=== PATIENT | female | born 1990 | race Caucasian/White ===

== ENCOUNTER 2020-10-15 11:07 | Inpatient (IN) ==
[2020-10-15] MEDS ORDERED: KETOROLAC TROMETHAMINE 15 MG/ML VIAL IV STA (11:54)
[2020-10-15] MEDS ORDERED: SODIUM CHLORIDE 0.9% 1000ML 1,000 ML IV ONE ×2 (11:54→12:50)
--- NOTE | 2020-10-15 12:11 | Emergency Department Note ---
History of Present Illness General Chief complaint: Fever Stated complaint: FEVER LEFT SIDE PAIN Time Seen by Provider: 10/15/20 11:36 Source: patient Mode of arrival: ambulatory Limitations: no limitations History of Present Illness Maximum Pain Intensity: 10 This patient is a 29-year-old female who presents to the emergency department for evaluation of fever and left-sided chest pain. She states that she has had a fever which started last night and continued this morning. Patient states that her temperature has been as high as 103.9 F. She reports that since yesterday, she has been experiencing a pain in her neck, down under her left breast. She states that she has a constant, achy pain which becomes sharper at times. She vomited last night. She reports she has a headache on and off. She has been vaccinated for COVID-19 and denies any recent COVID exposures. She she denies recent tick bites, but does state that she lives in the [facility] and her kids often get tick bites. She has taken ibuprofen for her fever. She has taken medication for acid reflux which did not help her chest pain. She denies any urinary symptoms, abdominal pain, neck pain/stiffness or shortness of breath. She has a chronic cough but denies anything different from her usual. Home Medications Medication Instructions Recorded Confirmed Type albuterol sulfate 90 mcg/actuation 2 puff INHALATION Q4H PRN 10/15/20 10/15/20 History aerosol inhaler (ProAir HFA) Allergies Allergy/AdvReac Type Severity Reaction Status Date / Time prednisone AdvReac Intermediate CONFUSED,CO Verified 10/15/20 13:24 MBATIVE Past Med/Surg History Medical History (Updated 10/15/20 @ 16:20 by Deja Quiles PA-C) Asthma Celiac disease MATT (iron deficiency anemia) IgA deficiency Surgical History (Updated 10/15/20 @ 16:19 by OZ Mitchell) H/O hernia repair History of cholecystectomy Hx of appendectomy Hx of tympanostomy tubes Family History Other Cancer Diabetes Gallbladder disease Heart disease Hypertension Lung disease Seizure Social History Smoking Status: Current every day smoker Tobacco Type: Cigarettes Cigarettes Per Day: 1/2-1 PPD; Second Hand Exposure: No; Do You Dip or Chew Tobacco: No; Tobacco Cessation Education Requested by Patient: No Hx Alcohol Use: No Hx Substance Use: No Preferred Language: Croatian Communication Ability: Effective Fleet Administrative Assistant Required: No Beliefs That Will Affect Care: None marital status: Current Living Situation: Spouse current occupational status: employed Other Information That Helps Us Care for You: No Feels Safe at Home: Yes Safety Concerns: Feels Safe At This Time Assistive Devices: None Review of Systems A total of 10 systems reviewed and were otherwise negative Physical Exam Vital Signs Vital Signs - 24 hr 10/15/20 11:13 10/15/20 13:53 Temperature 36.5 C Temperature Source Temporal Artery Scan Pulse Rate 128 H Pulse Rate [Apical] 118 H Respiratory Rate 22 16 Respiratory Effort / Characteristics Non-Labored Spontaneous Respiratory Depth Normal Blood Pressure 124/79 Blood Pressure [Right Arm] 153/110 H Blood Pressure Mean 94 Blood Pressure Mean [Right Arm] 124 Pulse Oximetry 96 100 Oxygen Delivery Method Room Air Room Air Sepsis Recent Fever Within 48 Hours Yes Sepsis New/Unexplained Change in Mental Status N/A Sepsis Action Taken by Nursing No Action Required VITALS: Vitals are noted on the nurse's note and reviewed by myself. GENERAL: This is a 29-year-old female, mildly ill-appearing, well-developed well-nourished. SKIN: The skin was without rashes. EARS: External auditory canals clear, tympanic membranes pearly pizarro without erythema or effusion bilaterally. EYES: Pupils equal round and reactive to light and accommodation. NOSE: Patent, turbinates without inflammation or discharge. MOUTH: Mucous membranes moist. Tonsils are not enlarged. Pharynx without erythema or exudate. NECK: Supple without nuchal rigidity. No lymphadenopathy. HEART: Regular rate and rhythm without murmurs gallops or rubs. LUNGS: Clear to auscultation bilaterally without wheezes, rales or rhonchi. ABDOMEN: Positive bowel sounds x 4. Soft, nontender to palpation. No guarding or rebound tenderness. MUSCULOSKELETAL: No reproducible tenderness of the chest wall. NEURO: Patient was alert and oriented to person place and time. Course Administered Medications Discontinued Medications Sodium Chloride (Nss 1000ml) 1,000 mls @ 999 mls/hr IV .Q1H1M ONE Stop: 10/15/20 12:54 Last Infusion: 10/15/20 14:27 Dose: 0 mls/hr Documented by: [id number] Admin: 10/15/20 12:12 Dose: 999 mls/hr Documented by: [id number] Ceftriaxone Sodium (Rocephin) 2,000 mg in 70 mls @ 140 mls/hr IV NOW STA Stop: 10/15/20 13:11 Last Infusion: 10/15/20 14:26 Dose: 0 mls/hr Documented by: [id number] Admin: 10/15/20 13:52 Dose: 140 mls/hr Documented by: [id number] Azithromycin 500 mg/ Dextrose 255 mls @ 125 mls/hr IV ONE ONE Stop: 10/15/20 14:44 Last Admin: 10/15/20 14:41 Dose: 125 mls/hr Documented by: [id number] Sodium Chloride (Nss 1000ml) 1,000 mls @ 999 mls/hr IV .Q1H1M ONE Stop: 10/15/20 13:50 Last Admin: 10/15/20 14:42 Dose: 999 mls/hr Documented by: [id number] Ioversol (Optiray 320 125ml) 120 ml IV ONCE ONE Stop: 10/15/20 13:49 Last Admin: 10/15/20 13:49 Dose: 120 ml Documented by: [id number] Ketorolac Tromethamine (Ketorolac Tromethamine 15 Mg/Ml Vial) 15 mg IV NOW STA Stop: 10/15/20 11:55 Last Admin: 10/15/20 12:12 Dose: 15 mg Documented by: [id number] Morphine Sulfate (Morphine Sulfate 10 Mg/Ml Carp/Vial) 6 mg IV NOW STA Stop: 10/15/20 12:50 Last Admin: 10/15/20 13:22 Dose: Not Given Documented by: [id number] Morphine Sulfate (Morphine Sulfate 4 Mg/Ml 1 Ml Carp\Vial) Confirm Administered Dose 4 mg .ROUTE .STK-MED ONE Stop: 10/15/20 13:16 Last Admin: 10/15/20 13:22 Dose: 4 mg Documented by: [id number] Morphine Sulfate (Morphine Sulfate 2 Mg/Ml Carp) Confirm Administered Dose 2 mg .ROUTE .STK-MED ONE Stop: 10/15/20 13:17 Last Admin: 10/15/20 13:21 Dose: 2 mg Documented by: [id number] Ondansetron HCl (Ondansetron Inj 2 Mg/Ml 2 Ml Vial) 4 mg IV ONE ONE Stop: 10/15/20 14:45 Last Admin: 10/15/20 15:09 Dose: 4 mg Documented by: [id number] Critical Care Time Critical Care Time: Yes Total Critical Care Time: 40 I have personally spent greater than 40 minutes of critical care time in the direct management of this patient. This includes bedside care, interpretation of diagnostic studies, and testing, discussion with consultants, patient, and family members, and other required patient management activities. This 40 minutes is in excess of all separately billable procedures. Medical Decision Making Differential Diagnosis Viral syndrome, otitis, pharyngitis, pneumonia, influenza, meningitis, urinary tract infection, sepsis, bacteremia, as well as other pathologies. Home Medications Current Medication List: was personally reviewed by me Laboratory Data Attestation: I reviewed the patient's lab results. Result diagrams: 10/15/20 12:00 10/15/20 12:00 Lab Results 10/15/20 10/15/20 10/15/20 Range/Units 12:00 12:00 12:00 WBC 20.89 H (4.8-10.8) K/uL RBC 4.05 L (4.2-5.4) M/uL Hgb 6.3 L* (12.0-16.0) g/dL Hct 23.5 L (37-47) % MCV 58.0 L (80-100) fL MCH 15.6 L (25-34) pg MCHC 26.8 L (32-36) g/dL RDW Std Deviation 41.8 (36.4-46.3) fL RDW Coeff of Jewell 19.7 H (11.5-14.5) % Plt Count 252 (130-400) K/uL Immature Gran % (Auto) 0.9 % Neut % (Auto) 88.4 % Lymph % (Auto) 4.9 % [place]onder[place] % (Auto) 5.6 % Eos % (Auto) 0.1 % Baso % (Auto) 0.1 % Neut # (Auto) 18.46 H (1.4-6.5) K/uL Lymph # (Auto) 1.02 L (1.2-3.4) K/uL [place] # (Auto) 1.17 H (0.11-0.59) K/uL Eos # (Auto) 0.02 (0-0.5) K/uL Baso # (Auto) 0.03 (0-0.2) K/uL Immature Gran # (Auto) 0.19 H (0.00-0.02) K/uL Polychromasia 1+ Hypochromasia Present Anisocytosis Present Microcytosis Present D-Dimer 540 H* (0-500) ug/L FEU Sodium 138 (136-145) mmol/L Potassium 3.3 L (3.5-5.1) mmol/L Chloride 107 (98-107) mmol/L Carbon Dioxide 23 (21-32) mmol/L Anion Gap 8.0 (3-11) BUN 11 (7-18) mg/dl Creatinine 0.88 (0.6-1.2) mg/dl Est Cr Clr Drug Dosing 115.2 ml/min Est GFR ( Amer) 102.9 ml/min Est GFR (Non-Af Amer) 88.8 ml/min BUN/Creatinine Ratio 12.5 (10-20) Glucose 107 H (70-99) mg/dl Lactate (0.4-2.0) mmol/L Calcium 8.1 L (8.5-10.1) mg/dl Total Bilirubin 1.3 H (0.2-1) mg/dl AST 7 L (15-37) U/L ALT 17 (12-78) U/L Alkaline Phosphatase 84 (45-117) U/L Troponin I < 0.015 (0-0.045) ng/ml Total Protein 6.4 (6.4-8.2) gm/dl Albumin 3.6 (3.4-5.0) gm/dl Globulin 2.8 (2.5-4.0) gm/dl Albumin/Globulin Ratio 1.3 (0.9-2) Urine Color Urine Appearance (Clear) Urine pH (4.5-7.5) Ur Specific Alpine (1.000-1.030) Urine Protein (Negative) Urine Glucose (UA) (Negative) Urine Ketones (Negative) Urine Blood (Negative) Urine Nitrite (Negative) Urine Bilirubin (Negative) Urine Urobilinogen (Negative) Ur Leukocyte Esterase (Negative) Urine WBC (Auto) (0-5) /hpf Urine RBC (Auto) (0-4) /hpf U Hyaline Cast (Auto) (0-5) /lpf U Epithel Cells (Auto) (0-5) /lpf Urine Bacteria (Auto) (Negative) Anaplasma Smear See Comment Lyme Disease IgG Ab (Negative) Lyme Disease IgM Ab (Negative) COVID-19 Eval Order SARS-CoV-2 (PCR) (Negative) Blood Type Antibody Screen Crossmatch 10/15/20 10/15/20 10/15/20 Range/Units 12:00 12:00 12:05 WBC (4.8-10.8) K/uL RBC (4.2-5.4) M/uL Hgb (12.0-16.0) g/dL Hct (37-47) % MCV (80-100) fL MCH (25-34) pg MCHC (32-36) g/dL RDW Std Deviation (36.4-46.3) fL RDW Coeff of Jewell (11.5-14.5) % Plt Count (130-400) K/uL Immature Gran % (Auto) % Neut % (Auto) % Lymph % (Auto) % Pondera % (Auto) % Eos % (Auto) % Baso % (Auto) % Neut # (Auto) (1.4-6.5) K/uL Lymph # (Auto) (1.2-3.4) K/uL [place] # (Auto) (0.11-0.59) K/uL Eos # (Auto) (0-0.5) K/uL Baso # (Auto) (0-0.2) K/uL Immature Gran # (Auto) (0.00-0.02) K/uL Polychromasia Hypochromasia Anisocytosis Microcytosis D-Dimer (0-500) ug/L FEU Sodium (136-145) mmol/L Potassium (3.5-5.1) mmol/L Chloride (98-107) mmol/L Carbon Dioxide (21-32) mmol/L Anion Gap (3-11) BUN (7-18) mg/dl Creatinine (0.6-1.2) mg/dl Est Cr Clr Drug Dosing ml/min Est GFR ( Amer) ml/min Est GFR (Non-Af Amer) ml/min BUN/Creatinine Ratio (10-20) Glucose (70-99) mg/dl Lactate 2.5 H* (0.4-2.0) mmol/L Calcium (8.5-10.1) mg/dl Total Bilirubin (0.2-1) mg/dl AST (15-37) U/L ALT (12-78) U/L Alkaline Phosphatase (45-117) U/L Troponin I (0-0.045) ng/ml Total Protein (6.4-8.2) gm/dl Albumin (3.4-5.0) gm/dl Globulin (2.5-4.0) gm/dl Albumin/Globulin Ratio (0.9-2) Urine Color Urine Appearance (Clear) Urine pH (4.5-7.5) Ur Specific Alpine (1.000-1.030) Urine Protein (Negative) Urine Glucose (UA) (Negative) Urine Ketones (Negative) Urine Blood (Negative) Urine Nitrite (Negative) Urine Bilirubin (Negative) Urine Urobilinogen (Negative) Ur Leukocyte Esterase (Negative) Urine WBC (Auto) (0-5) /hpf Urine RBC (Auto) (0-4) /hpf U Hyaline Cast (Auto) (0-5) /lpf U Epithel Cells (Auto) (0-5) /lpf Urine Bacteria (Auto) (Negative) Anaplasma Smear Lyme Disease IgG Ab Negative (Negative) Lyme Disease IgM Ab Negative (Negative) COVID-19 Eval Order Covid19 at [facility] SARS-CoV-2 (PCR) (Negative) Blood Type Antibody Screen Crossmatch 10/15/20 10/15/20 10/15/20 Range/Units 12:05 12:58 12:58 WBC (4.8-10.8) K/uL RBC (4.2-5.4) M/uL Hgb (12.0-16.0) g/dL Hct (37-47) % MCV (80-100) fL MCH (25-34) pg MCHC (32-36) g/dL RDW Std Deviation (36.4-46.3) fL RDW Coeff of Jewell (11.5-14.5) % Plt Count (130-400) K/uL Immature Gran % (Auto) % Neut % (Auto) % Lymph % (Auto) % Pondera % (Auto) % Eos % (Auto) % Baso % (Auto) % Neut # (Auto) (1.4-6.5) K/uL Lymph # (Auto) (1.2-3.4) K/uL [place] # (Auto) (0.11-0.59) K/uL Eos # (Auto) (0-0.5) K/uL Baso # (Auto) (0-0.2) K/uL Immature Gran # (Auto) (0.00-0.02) K/uL Polychromasia Hypochromasia Anisocytosis Microcytosis D-Dimer (0-500) ug/L FEU Sodium (136-145) mmol/L Potassium (3.5-5.1) mmol/L Chloride (98-107) mmol/L Carbon Dioxide (21-32) mmol/L Anion Gap (3-11) BUN (7-18) mg/dl Creatinine (0.6-1.2) mg/dl Est Cr Clr Drug Dosing ml/min Est GFR ( Amer) ml/min Est GFR (Non-Af Amer) ml/min BUN/Creatinine Ratio (10-20) Glucose (70-99) mg/dl Lactate (0.4-2.0) mmol/L Calcium (8.5-10.1) mg/dl Total Bilirubin (0.2-1) mg/dl AST (15-37) U/L ALT (12-78) U/L Alkaline Phosphatase (45-117) U/L Troponin I (0-0.045) ng/ml Total Protein (6.4-8.2) gm/dl Albumin (3.4-5.0) gm/dl Globulin (2.5-4.0) gm/dl Albumin/Globulin Ratio (0.9-2) Urine Color Dark Yellow Urine Appearance Cloudy A (Clear) Urine pH 5.0 (4.5-7.5) Ur Specific Alpine 1.021 (1.000-1.030) Urine Protein Trace H (Negative) Urine Glucose (UA) Negative (Negative) Urine Ketones Trace H (Negative) Urine Blood Negative (Negative) Urine Nitrite Negative (Negative) Urine Bilirubin 1+ H (Negative) Urine Urobilinogen Negative (Negative) Ur Leukocyte Esterase 2+ H (Negative) Urine WBC (Auto) >30 H (0-5) /hpf Urine RBC (Auto) 0-4 (0-4) /hpf U Hyaline Cast (Auto) 5-10 H (0-5) /lpf U Epithel Cells (Auto) >30 H (0-5) /lpf Urine Bacteria (Auto) 1+ H (Negative) Anaplasma Smear Lyme Disease IgG Ab (Negative) Lyme Disease IgM Ab (Negative) COVID-19 Eval Order SARS-CoV-2 (PCR) NEGATIVE (Negative) Blood Type O Positive Antibody Screen NEGATIVE Crossmatch See Detail Imaging Data Attestation: I personally reviewed and interpreted this imaging study as follows: Radiologist's Impression: Chest X-Ray 10/15/20 11:55 XR chest 1V portable HISTORY: 29 years-old Female Fever, chest pain acute fever with atypical chest pain COMPARISON: Chest radiograph 04/25/2020 TECHNIQUE: Portable AP view of the chest FINDINGS: Cardiomediastinal and hilar silhouettes are within normal limits. No airspace opacities of the left lung base. No pneumothorax, pleural effusion or overt pulmonary edema. Bones appear normal. IMPRESSION: Lateral left lung base airspace opacities are suggestive of pneumonia. ACT 112: Negative or not required by law. The above report was generated using voice recognition software. It may contain grammatical, syntax or spelling errors. Electronically signed by: Cade Hay M.D. 10/15/2020 12:34 PM Chest CTA 10/15/20 12:42 CT ANGIOGRAM OF THE CHEST CLINICAL HISTORY: left chest pain, elevated dimer, fever COMPARISON STUDY: No previous studies for comparison. TECHNIQUE: Following the IV administration of 120 mL of Optiray, CT angiogram of the thorax was performed from the thoracic inlet to the lung bases utilizing the pulmonary embolus protocol. Images are reviewed in the axial, sagittal, and coronal planes. IV contrast was administered without complication. MIP imaging was performed. A dose lowering technique was utilized adhering to the principles of ALARA. CT DOSE: 513.12 mGycm FINDINGS: There is adequate opacification within main pulmonary artery. No definite central pulmonary embolus is seen. Evaluation of peripheral branches of the pulmonary artery is limited due to motion artifact. No dilatation of the main pulmonary is seen. No right heart strain demonstrated. No pathologically enlarged axillary mediastinal or hilar lymph nodes were visualized. There was no evidence of thoracic aortic dilatation. Tracheobronchial tree is patent. Consolidative lesion is seen within mid-inferior anterior aspect of the left lower lobe. No pleural effusions are visualized. Limited evaluation of upper abdominal viscera shows no evidence of acute abnormalities. Osseous structures are unremarkable. IMPRESSION: 1. No acute central pulmonary embolus. Evaluation of peripheral branches of the pulmonary artery is limited due to motion artifact. There is no secondary signs of pulmonary embolus. 2. Consolidative lesion within left lower lobe likely representing pneumonia. Follow-up evaluation with CT of the chest in 4-6 weeks is recommended to document resolution. ACT 112: Negative or not required by law. The above report was generated using voice recognition software. It may contain grammatical, syntax or spelling errors. Electronically signed by: vEa Rayo DO 10/15/2020 2:12 PM ECG Data Attestation: I personally reviewed and interpreted this ECG as follows: Indication: + chest pain Rate (beats per minute): 124 Rhythm: + sinus tachycardia ECG Intervals/blocks: + Normal QRS ECG ST segments: + Nonspecific ST abnormalities Change: the following changes noted (ST changes in inferior and lateral leads.) MDM Narrative Continuous quality assurance monitor body: Order was placed for continuous quality assurance monitor body. Patient was placed on the quality assurance monitor body. Patient was noted to be in sinus tachycardia at an initial rate of 120 bpm. The patient is a 29-year-old female who presents today complaining of fever and left-sided chest pain. Patient was found to be anemic with a hemoglobin of 6.3. She has been anemic in the past, but her hemoglobin is significantly lower today. Hemoccult was negative. Patient signed blood consent and was given a unit of packed red blood cells. She was found to be septic from a left lower lobe pneumonia. She was given 2 L of fluids (30 mL/kg calculated with ideal body weight). She was given Rocephin and azithromycin. The case was discussed with the [facility] hospitalist, who agreed to evaluate the patient for further care. Impression & Plan Sepsis, Pneumonia, Anemia Discharge Plan Visit Data Chief Complaint: Fever Stated Complaint: FEVER LEFT SIDE PAIN ED Provider: Kareem Carcamo ED Midlevel Provider: Deja Quiles Discharge Problem: Sepsis, Pneumonia, Anemia Discharge Problem: Sepsis Qualifiers: Sepsis type: sepsis due to unspecified organism Sepsis acute organ dysfunction status: unspecified Qualified Code(s): A41.9 - Sepsis, unspecified organism Pneumonia Qualifiers: Pneumonia type: due to unspecified organism Laterality: left Lung location: lower lobe of lung Qualified Code(s): J18.9 - Pneumonia, unspecified organism Anemia Qualifiers: Anemia type: unspecified type Qualified Code(s): D64.9 - Anemia, unspecified
[2020-10-15 12:32] LABS: Hematocrit (blood only) 23.5 % (37-47); Hemoglobin 6.3 g/dL (12.0-16.0); Mean Corpuscular Hemoglobin 15.6 pg (25-34); Mean Corpuscular Hgb Conc 26.8 g/dL (32-36); Platelet Count 252 K/uL (130-400); RDW Coefficient of Variation 19.7 % (11.5-14.5); RDW Standard Deviation 41.8 fL (36.4-46.3); Red Blood Count 4.05 M/uL (4.2-5.4); White Blood Count 20.89 K/uL (4.8-10.8)
--- NOTE | 2020-10-15 12:36 | XRay Report ---
XR chest 1V portable HISTORY: 29 years-old Female Fever, chest pain acute fever with atypical chest pain COMPARISON: Chest radiograph 04/25/2020 TECHNIQUE: Portable AP view of the chest FINDINGS: Cardiomediastinal and hilar silhouettes are within normal limits. No airspace opacities of the left l geoffrey base. No pneumothorax, pleural effusion or overt pulmonary edema. Bones appear normal. IMPRESSION: Lateral left lung base airspace opacities are suggestive of pneumonia. ACT 112: Negative or not required by law. The above report was generated using voice recognition software. It may contain grammatical, syntax o r spelling errors. Electronically signed by: Cade Hay M.D. 10/15/2020 12:34 PM
[2020-10-15 12:39] LABS: D Dimer 540 ug/L FEU (0-500)
[2020-10-15] MEDS ORDERED: cefTRIAXone SODIUM 2,000 MG/70 ML BAG IV STA (12:42)
[2020-10-15] MEDS ORDERED: AZITHROMYCIN 500 MG in DEXTROSE 5% 250 ML IV ONE (12:42)
[2020-10-15] MEDS ORDERED: SODIUM CHLORIDE 0.9% 250 ML IV PRN ×2 (12:44→13:38)
[2020-10-15 12:47] LABS: Albumin Level 3.6 gm/dl (3.4-5.0); Aspartate Aminotransferase 7 U/L (15-37); BUN Creatinine Ratio 12.5 (10-20); Blood Urea Nitrogen 11 mg/dl (7-18); Calcium 8.1 mg/dl (8.5-10.1); Carbon Dioxide 23 mmol/L (21-32); Chloride 107 mmol/L (98-107); Creatinine Clr Calc Pharmacy 115.2 ml/min; Est GFR (African American) 102.9 ml/min; Est GFR (Non-African American) 88.8 ml/min; Glucose 107 mg/dl (70-99); Potassium 3.3 mmol/L (3.5-5.1); Sodium 138 mmol/L (136-145)
[2020-10-15 12:48] LABS: Anisocytosis Present; Basophils # (auto) 0.03 K/uL (0-0.2); Basophils % (auto) 0.1 %; Eosinophils # (auto) 0.02 K/uL (0-0.5); Eosinophils % (auto) 0.1 %; Hypochromasia Present; Immature Granulocytes # (auto) 0.19 K/uL (0.00-0.02); Immature Granulocytes % (auto) 0.9 %; Lymphocytes # (auto) 1.02 K/uL (1.2-3.4); Lymphocytes % (auto) 4.9 %; Microcytosis Present; Monocytes # (auto) 1.17 K/uL (0.11-0.59); Monocytes % (auto) 5.6 %; Neutrophils # (auto) 18.46 K/uL (1.4-6.5); Neutrophils % (auto) 88.4 %; Polychromasia 1+
[2020-10-15] MEDS ORDERED: MoRPHine SULFATE 10 MG/ML CARP/VIAL IV STA (12:49)
[2020-10-15 12:52] LABS: Alanine Aminotransferase 17 U/L (12-78); Albumin Globulin Ratio 1.3 (0.9-2); Alkaline Phosphatase 84 U/L (45-117); Bilirubin,Total 1.3 mg/dl (0.2-1); Globulin 2.8 gm/dl (2.5-4.0); Total Protein 6.4 gm/dl (6.4-8.2); Troponin I < 0.015 ng/ml (0-0.045)
[2020-10-15 13:07] LABS: Lyme Ab IgG w/WB Rflx Negative (Negative)
[2020-10-15 13:09] LABS: Lyme Ab IgM w/WB Rflx Negative (Negative)
[2020-10-15] MEDS ORDERED: MoRPHine SULFATE 4 MG/ML 1 ML CARP\\VIAL ONE (13:15)
[2020-10-15] MEDS ORDERED: MoRPHine SULFATE 2 MG/ML CARP ONE (13:16)
[2020-10-15 13:29] LABS: Appearance Urine Cloudy (Clear); Bacteria Urine Automated 1+ (Negative); Blood Urine Negative (Negative); Color Urine Dark Yellow; Epithelial Cell Urine Auto >30 /lpf (0-5); Glucose Urine UA Negative (Negative); Ketones Urine Trace (Negative); Leukocyte Esterase Urine 2+ (Negative); Nitrite Urine Negative (Negative); Protein Urine Trace (Negative); Specific Gravity Urine 1.021 (1.000-1.030); Urobilinogen Urine Negative (Negative); WBC Urine Automated >30 /hpf (0-5)
[2020-10-15 13:32] LABS: Bilirubin Urine 1+ (Negative)
[2020-10-15 13:40] LABS: RBC Urine Automated 0-4 /hpf (0-4)
[2020-10-15] MEDS ORDERED: OPTIRAY 320 125ml IV ONE (13:48)
--- NOTE | 2020-10-15 14:14 | CT Scan Report ---
CT ANGIOGRAM OF THE CHEST CLINICAL HISTORY: left chest pain, elevated dimer, fever COMPARISON STUDY: No previous studies for comparison. TECHNIQUE: Following the IV administration of 120 mL of Optiray, CT angiogram of the thorax was perfo rmed from the thoracic inlet to the lung bases utilizing the pulmonary embolus protocol. Images are r eviewed in the axial, sagittal, and coronal planes. IV contrast was administered without complication . MIP imaging was performed. A dose lowering technique was utilized adhering to the principles of AL BUTCH. CT DOSE: 513.12 mGycm FINDINGS: There is adequate opacification within main pulmonary artery. No definite central pulmonary embolus i s seen. Evaluation of peripheral branches of the pulmonary artery is limited due to motion artifact. No dilatation of the main pulmonary is seen. No right heart strain demonstrated. No pathologically enlarged axillary mediastinal or hilar lymph nodes were visualized. There was no evidence of thoracic aortic dilatation. Tracheobronchial tree is patent. Consolidative lesion is seen within mid-inferior anterior aspect of the left lower lobe. No pleural effusions are visualized. Limited evaluation of upper abdominal viscera shows no evidence of acute abnormalities. Osseous structures are unremarkable. IMPRESSION: 1. No acute central pulmonary embolus. Evaluation of peripheral branches of the pulmonary artery is limited due to motion artifact. There is no secondary signs of pulmonary embolus. 2. Consolidative lesion within left lower lobe likely representing pneumonia. Follow-up evaluation w ith CT of the chest in 4-6 weeks is recommended to document resolution. ACT 112: Negative or not required by law. The above report was generated using voice recognition software. It may contain grammatical, syntax o r spelling errors. Electronically signed by: Eva Rayo DO 10/15/2020 2:12 PM
[2020-10-15] MEDS ORDERED: ONDANSETRON INJ 2 MG/ML 2 ML VIAL IV PRN (14:42)
[2020-10-15] MEDS ORDERED: ONDANSETRON INJ 2 MG/ML 2 ML VIAL IV ONE (14:44)
[2020-10-15 15:04] LABS: Reticulocyte % 1.7 % (0.5-2.0); Reticulocytes # 0.06 10^6/uL (0.02-0.10)
[2020-10-15] MEDS ORDERED: POTASSIUM CHLORIDE CRTAB 20 MEQ TABCR PO STA (15:04)
[2020-10-15 15:25] LABS: Ferritin 32.7 ng/ml (8-388)
[2020-10-15] MEDS ORDERED: HYDROmorphone INJ 0.5 MG/0.5 ML SYR IV STA (16:03)
--- NOTE | 2020-10-15 16:28 | History & Physical Report ---
Date of Service October 15, 2020 Assessment & Plan (1) Severe sepsis: (2) Pneumonia: Plan: -Admit to telemetry -Patient presenting from home with reports of fever and left-sided rib pain -On presentation, tachycardic, WBC 20K, lactic acid 2.5. Afebrile, BP stable -CTA chest negative for pulmonary embolism however shows a left basilar pneumonia -S/p IV ceftriaxone and IV azithromycin in the ED, continue with -Follow blood cultures -IVF, trend lactate -Given smoking status, recommend pneumonia vaccine at discharge (3) MATT (iron deficiency anemia): Plan: -Hgb 6.3 -Longstanding history of MATT however patient reports inability to tolerate iron pills -Stool for Hemoccult negative -1 unit PRBC -Recommend outpatient hematology evaluation (4) Abnormal urinalysis: Plan: -UA suggest possible UTI however no urinary symptoms reported -Follow culture, on IV ceftriaxone as above (5) DVT prophylaxis: Plan: -SCDs due to anemia Admission and Anticipated Discharge Date Admission Date: October 15, 2020 History of Present Illness Chief Complaint: Fever, left-sided rib pain Primary Care Provider: Liyah Molina, 29-year-old female with PMH asthma, IgA deficiency, iron deficiency anemia, tobacco abuse, and other problems listed below who presents to the ED for evaluation of fever and left-sided rib pain. Patient reports she developed a fever last evening of around 101 and persisted through to today. Patient reports she also has a left-sided rib pain that radiates up over her left breast and into her back. Patient describes the pain is constant, achy, sharp at times. She reports a chronic cough from smoking which is unchanged from baseline. Had some nausea and vomiting last evening which she attributed to GERD. Denies hematemesis or coffee-ground emesis. No abdominal pain or diarrhea. Reports a history of asthma and uses albuterol inhaler weekly. Also carries a history of iron deficiency anemia and is to be on iron pills however patient reports he does not tolerate them. Patient denies lightheadedness, dizziness, diaphoresis, syncopal events. No urinary symptoms. In the ED, patient was tachycardic on arrival. Labs show WBC 20 K, Hgb 6.3, K+ 3.3, lactate 2.5 -> 2.1. Afebrile, BP stable. CTA chest negative for pulmonary embolism however shows a left basilar pneumonia. Patient was given IV azithromycin, IV ceftriaxone, IV Dilaudid, IV ketorolac, IV morphine, IV Zofran, IVF. Allergies Allergy/AdvReac Type Severity Reaction Status Date / Time prednisone AdvReac Intermediate CONFUSED,CO Verified 10/15/20 13:24 MBATIVE Home Medications Medication Instructions Recorded Confirmed Type albuterol sulfate 90 mcg/actuation 2 puff INHALATION Q4H PRN 10/15/20 10/15/20 History aerosol inhaler (ProAir HFA) Past Med/Surg History Medical History (Updated 10/15/20 @ 22:44 by Aixa De Leon, ) Asthma Celiac disease MATT (iron deficiency anemia) IgA deficiency Surgical History H/O hernia repair History of cholecystectomy Hx of appendectomy Hx of tympanostomy tubes Family History Other Cancer Diabetes Gallbladder disease Heart disease Hypertension Lung disease Seizure Social History Smoking Status: Current every day smoker Tobacco Type: Cigarettes Cigarettes Per Day: 1/2-1 PPD; Second Hand Exposure: No; Do You Dip or Chew Tobacco: No; Tobacco Cessation Education Requested by Patient: No Hx Alcohol Use: No Hx Substance Use: No Preferred Language: Hebrew Communication Ability: Effective 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 Required: No Beliefs That Will Affect Care: None marital status: Current Living Situation: Spouse current occupational status: employed Other Information That Helps Us Care for You: No Feels Safe at Home: Yes Safety Concerns: Feels Safe At This Time Assistive Devices: None Review of Systems Review of Systems: ROS per HPI, all other systems reviewed and negative Physical Exam Constitutional: WD/WN, vitals as above Eyes: PERRL, conjunctivae normal, anicteric sclerae ENMT: external ear and nose normal, oropharynx normal Respiratory: normal respiratory effort; no respiratory distress Auscultation: + diminished lung sounds (left lung hoyt); no wheezes Cardiovascular: Rate/Rhythm: regular rhythm and + tachycardic Vessels: normal peripheral pulses Extremities: no edema Gastrointestinal (Abdomen): normal bowel sounds, soft, nontender, no hepatosplenomegaly Musculoskeletal: no cyanosis or clubbing, extremities motor strength 5/5 Skin: no rashes, warm and dry Neurologic: PERRL, EOMI, accommodation nl, no face palsy, no dysarthria Psychiatric: A+Ox3, euthymic affect Results & Data Results & Data ([facility]) Vital Signs (Past 12 Hours) Vital Signs Temp Pulse Pulse Resp BP BP Pulse Ox 10/15/20 16:06 36.8 C 106 H 20 100/58 L 98 10/15/20 16:00 106 H 20 100/58 L 98 10/15/20 15:51 36.8 C 107 H 21 106/87 100 10/15/20 15:30 36.8 C 113 H 22 127/79 99 10/15/20 14:48 113 H 18 119/67 99 10/15/20 13:53 118 H 16 153/110 H 100 10/15/20 11:13 36.5 C 128 H 22 124/79 96 Laboratory Results Short CBC 10/15/20 10/15/20 10/15/20 Range/Units 12:00 12:00 15:13 WBC 20.89 H (4.8-10.8) K/uL Hgb 6.3 L* (12.0-16.0) g/dL Hct 23.5 L (37-47) % Plt Count 252 (130-400) K/uL Lactate 2.5 H* 2.1 H* (0.4-2.0) mmol/L BMP 10/15/20 12:00 Sodium 138 Potassium 3.3 L Chloride 107 Carbon Dioxide 23 BUN 11 Creatinine 0.88 Glucose 107 H Calcium 8.1 L Cardiac Enzymes 10/15/20 Range/Units 12:00 Troponin I < 0.015 (0-0.045) ng/ml Liver Function 10/15/20 Range/Units 12:00 Total Bilirubin 1.3 H (0.2-1) mg/dl AST 7 L (15-37) U/L ALT 17 (12-78) U/L Alkaline Phosphatase 84 (45-117) U/L Albumin 3.6 (3.4-5.0) gm/dl Urine 10/15/20 Range/Units 12:58 Urine Color Dark Yellow Urine Appearance Cloudy A (Clear) Urine pH 5.0 (4.5-7.5) Ur Specific [place] 1.021 (1.000-1.030) Urine Protein Trace H (Negative) Urine Glucose (UA) Negative (Negative) Diagnostic Findings Chest X-Ray 10/15/20 11:55 XR chest 1V portable HISTORY: 29 years-old Female Fever, chest pain acute fever with atypical chest pain COMPARISON: Chest radiograph 04/25/2020 TECHNIQUE: Portable AP view of the chest FINDINGS: Cardiomediastinal and hilar silhouettes are within normal limits. No airspace opacities of the left lung base. No pneumothorax, pleural effusion or overt pulmonary edema. Bones appear normal. IMPRESSION: Lateral left lung base airspace opacities are suggestive of pneumonia. ACT 112: Negative or not required by law. The above report was generated using voice recognition software. It may contain grammatical, syntax or spelling errors. Electronically signed by: Cade Hay M.D. 10/15/2020 12:34 PM Chest CTA 10/15/20 12:42 CT ANGIOGRAM OF THE CHEST CLINICAL HISTORY: left chest pain, elevated dimer, fever COMPARISON STUDY: No previous studies for comparison. TECHNIQUE: Following the IV administration of 120 mL of Optiray, CT angiogram of the thorax was performed from the thoracic inlet to the lung bases utilizing the pulmonary embolus protocol. Images are reviewed in the axial, sagittal, and coronal planes. IV contrast was administered without complication. MIP imaging was performed. A dose lowering technique was utilized adhering to the principles of ALARA. CT DOSE: 513.12 mGycm FINDINGS: There is adequate opacification within main pulmonary artery. No definite central pulmonary embolus is seen. Evaluation of peripheral branches of the pulmonary artery is limited due to motion artifact. No dilatation of the main pulmonary is seen. No right heart strain demonstrated. No pathologically enlarged axillary mediastinal or hilar lymph nodes were visualized. There was no evidence of thoracic aortic dilatation. Tracheobronchial tree is patent. Consolidative lesion is seen within mid-inferior anterior aspect of the left lower lobe. No pleural effusions are visualized. Limited evaluation of upper abdominal viscera shows no evidence of acute abnormalities. Osseous structures are unremarkable. IMPRESSION: 1. No acute central pulmonary embolus. Evaluation of peripheral branches of the pulmonary artery is limited due to motion artifact. There is no secondary signs of pulmonary embolus. 2. Consolidative lesion within left lower lobe likely representing pneumonia. Follow-up evaluation with CT of the chest in 4-6 weeks is recommended to document resolution. ACT 112: Negative or not required by law. The above report was generated using voice recognition software. It may contain grammatical, syntax or spelling errors. Electronically signed by: Eva Rayo DO 10/15/2020 2:12 PM Code Status & VTE Plan VTE Prophylaxis Plan VTE Prophylaxis will be ordered: Yes Supervising Physician Co-Signing Physician Notes I have seen and examined the patient and have discussed the case with the provider above. I agree with the assessment and plan as stated with the following exceptions. The patient is a 29 yo smoker with a h/o celiac disease and IgA deficiency who presents with sepsis 2/2 pneumonia. She has a chronic anemia that has not been evaluated by hematology or GI. She declines iron supplementation in pill form. She is asymptomatic from what I can tell but does have a severe chest pain thought to be consistent with pleurisy which radiates into her neck on the left. The pain is sharp and is causing her to gasp and shift uncomfortably in the bed. She states that she has never felt pain like this before. Physical exam is as above with good air movement on pulmonary auscultation. Imaging reflects a left lower lobe infiltrate and no PE. I have concern that she has received non-washed RBCs without premedication here in the ER with her h/o IgA deficiency. She doesn't see an Pressing Machine Operator from what I can tell, and she isn't aware of the concern for blood products in her. The second unit was cancelled and if any further blood is to be given, a consult to Dr. Osborne should be considered with special " washed RBCs" to be ordered from the [facility] in [place] (this is different than leukoreduced). No FFP should be given out of concern for anaphylaxis. She is currently doing well with the one unit. Further outpaitent investigation is warranted for her anemia which may be chronic, but is severe. Will give folic acid replacement. It should be noted that patients with gA deficiency may carry a higher risk of malignancies, specifically in their GI tracts. Therefore, a followup with Immunology, Hematology with consideration for Gastroenterology should be considered at discharged. Also, consideration should be given to wearing a medical alert bracelet with this information on it. Lastly, a Pneumovax vaccine should be given prior to discharge to help prevent pneumonia moving forward in this smoker. Pneumovax is also considered in IgA deficiency, also. DO Moises (1) Pneumonia Laterality: left Lung location: lower lobe of lung Pneumonia type: due to unspecified organism Qualified Code(s): J18.9 - Pneumonia, unspecified organism
--- NOTE | 2020-10-15 19:28 | Electrocardiogram Report ---
Test Reason : Blood Pressure : / mmHG Vent. Rate : 124 BPM Atrial Rate : 124 BPM P-R Int : 118 ms QRS Dur : 090 ms QT Int : 310 ms P-R-T Axes : 046 040 032 degrees QTc Int : 445 ms Sinus tachycardia Diffuse Nonspecific T wave abnormality Abnormal ECG When compared with ECG of 25-APR-2020 21:53, Abnormal right superior axis deviation by 35 bpm Nonspecific T wave abnormality, worse in Inferior leads Nonspecific T wave abnormality now evident in Anterolateral leads Confirmed by Cedric Lock ([id number]) on 10/15/2020 7:28:13 PM Referred By: Confirmed By:Cedric Lock
[2020-10-15] MEDS: KETOROLAC TROMETHAMINE 15 MG/ML VIAL IV PRN (22:15)
[2020-10-15] MEDS: ACETAMINOPHEN 325 MG TAB PO SCH (22:15)
[2020-10-15] MEDS: SODIUM CHLORIDE 0.9% 1000ML 1,000 ML IV SCH (22:15)
[2020-10-15 23:06] LABS: Hematocrit (blood only) 23.5 % (37-47); Hemoglobin 6.5 g/dL (12.0-16.0)
[2020-10-16] MEDS: ACETAMINOPHEN 325 MG TAB PO SCH ×4 (02:04→18:32)
[2020-10-16] MEDS: SODIUM CHLORIDE 0.9% 1000ML 1,000 ML IV SCH ×2 (03:16→10:48)
[2020-10-16] MEDS: KETOROLAC TROMETHAMINE 15 MG/ML VIAL IV PRN (06:21)
[2020-10-16 07:17] LABS: Hematocrit (blood only) 24.5 % (37-47); Hemoglobin 6.7 g/dL (12.0-16.0); Mean Corpuscular Hgb Conc 27.3 g/dL (32-36); Mean Corpuscular Volume 62.2 fL (80-100); Platelet Count 199 K/uL (130-400); RDW Coefficient of Variation 23.3 % (11.5-14.5); RDW Standard Deviation 52.5 fL (36.4-46.3); Red Blood Count 3.94 M/uL (4.2-5.4); White Blood Count 9.75 K/uL (4.8-10.8)
[2020-10-16 07:54] LABS: BUN Creatinine Ratio 14.7 (10-20); Calcium 7.7 mg/dl (8.5-10.1); Creatinine Clr Calc Pharmacy 145.1 ml/min; Est GFR (African American) 133.4 ml/min; Est GFR (Non-African American) 115.1 ml/min; Potassium 3.5 mmol/L (3.5-5.1)
[2020-10-16] MEDS: FOLIC ACID 1 MG TAB PO SCH (08:26)
--- NOTE | 2020-10-16 12:59 | Hospitalist Progress Note ---
Date of Service October 16, 2020 Assessment & Plan (1) Severe sepsis: (2) Pneumonia: Plan: Patient presented with fever and left-sided chest pain. Patient was found to have leukocytosis on admission, along with lactic acidosis and tachycardia. This morning patient is doing okay. Currently she is on room air. Hemodynamically patient is doing fine. -CTA chest negative for pulmonary embolism however shows a left basilar pneumonia -Will continue with ceftriaxone and azithromycin. -Blood cultures are negative thus far -Leukocytosis and lactic acidosis is resolved -Given smoking status, recommend pneumonia vaccine at discharge. (3) MATT (iron deficiency anemia): Plan: -Hgb 6.3 on admission. Patient was given 1 unit of PRBC. Hemoglobin this morning at 6.7. However given her history of IgA deficiency, patient would need washed RBCs. I spoke with Dr. Mcdonnell. Awaiting to hear back from [facility]. Trend CBC twice daily. -Stool for Hemoccult negative Given her history of IgA, patient will need allergy and hematology outpatient follow-up. I spoke with [facility] physician Dr. Juarez Conklin ([phone]). He recommended to order forzen glycerized RBC. Blood bank was notified; it would take roughly 24 hour to obtain. In case of emergency, if patient requires transfusion, can order regular PRBC. (4) Abnormal urinalysis: Plan: Patient denies any urinary symptoms. Urine cultures are pending. Will continue with ceftriaxone. (5) DVT prophylaxis: Plan: -SCDs due to anemia Admission and Anticipated Discharge Date Admission Date: October 15, 2020 Subjective Patient reports that she feels exhausted. Denies any shortness of breath and denies any further episodes of chest pain. However she does report that she is c oughing now. Denies any headache or dizziness. Denies any abdominal pain, diarrhea or dysuria. Reports she was nauseous yesterday but doing okay today. Hemodynamically she is doing fine. Review of Systems Review of Systems: All systems reviewed & are unremarkable except as noted in HPI & below Physical Exam Physical Exam: General: A&Ox3 HENT: NCAT, MMM, EOMI Eyes: PERRLA Neck: Supple, normal range of motion CVS: normal rate and rhythm Resp: b/l coarse breath sound Abdomen: Soft, ND/NT Extremities: Absence of any edema Neuro: face symmetric, strength grossly equal, no focal deficit Skin: warm and dry, no rashes/lesions/errythema MSK: no joint swelling/erythema Results & Data Results & Data ([facility]) Vital Signs (Past 12 Hours) Vital Signs Temp Pulse Pulse Resp BP BP Pulse Ox 10/16/20 11:37 37.0 C 78 18 122/80 98 10/16/20 08:00 90 10/16/20 07:53 36.7 C 92 H 18 118/66 95 10/16/20 03:37 36.5 C 87 18 85/66 L 90 (1) Pneumonia Laterality: left Lung location: lower lobe of lung Pneumonia type: due to unspecified organism Qualified Code(s): J18.9 - Pneumonia, unspecified organism
[2020-10-16] MEDS: cefTRIAXone SODIUM 2,000 MG in DEXTROSE 5% 50 ML IV SCH (13:47)
[2020-10-16] MEDS ORDERED: AZITHROMYCIN 500 MG in DEXTROSE 5% 250 ML IV SCH (15:00)
[2020-10-16 18:56] LABS: Hematocrit (blood only) 26.5 % (37-47); Hemoglobin 7.2 g/dL (12.0-16.0); Mean Corpuscular Hgb Conc 27.2 g/dL (32-36); Mean Corpuscular Volume 62.6 fL (80-100); Nucleated RBC # (auto) 0.02 K/uL (0-0); Nucleated RBC % (auto) 0.2 %; Platelet Count 232 K/uL (130-400); RDW Coefficient of Variation 23.2 % (11.5-14.5); RDW Standard Deviation 52.1 fL (36.4-46.3); Red Blood Count 4.23 M/uL (4.2-5.4); White Blood Count 9.53 K/uL (4.8-10.8)
[2020-10-16 18:59] LABS: Basophils # (auto) 0.02 K/uL (0-0.2); Basophils % (auto) 0.2 %; Dohle Bodies 1+; Eosinophils % (auto) 2.1 %; Hypochromasia Present; Immature Granulocytes # (auto) 0.02 K/uL (0.00-0.02); Immature Granulocytes % (auto) 0.2 %; Lymphocytes # (auto) 1.59 K/uL (1.2-3.4); Lymphocytes % (auto) 16.7 %; Microcytosis Present; Monocytes # (auto) 0.61 K/uL (0.11-0.59); Monocytes % (auto) 6.4 %; Neutrophils # (auto) 7.09 K/uL (1.4-6.5); Neutrophils % (auto) 74.4 %; Ovalocytes 1+
[2020-10-16] MEDS: ALBUT/IPRATROP 3MG/0.5MG NEB 3 ML VIAL NEB SCH ×2 (19:08→22:57)
[2020-10-17] MEDS: ACETAMINOPHEN 325 MG TAB PO SCH ×4 (00:23→16:44)
[2020-10-17] MEDS: KETOROLAC TROMETHAMINE 15 MG/ML VIAL IV PRN ×2 (00:23→19:53)
[2020-10-17] MEDS: ALBUT/IPRATROP 3MG/0.5MG NEB 3 ML VIAL NEB SCH ×6 (03:50→23:11)
[2020-10-17 07:12] LABS: Hematocrit (blood only) 24.7 % (37-47); Hemoglobin 6.8 g/dL (12.0-16.0); Mean Corpuscular Hgb Conc 27.5 g/dL (32-36); Mean Corpuscular Volume 61.8 fL (80-100); Platelet Count 241 K/uL (130-400); RDW Coefficient of Variation 22.9 % (11.5-14.5); RDW Standard Deviation 51.6 fL (36.4-46.3); White Blood Count 6.31 K/uL (4.8-10.8)
[2020-10-17 07:14] LABS: Anisocytosis Present; Basophils # (auto) 0.02 K/uL (0-0.2); Basophils % (auto) 0.3 %; Echinocytes 1+; Eosinophils # (auto) 0.22 K/uL (0-0.5); Eosinophils % (auto) 3.5 %; Immature Granulocytes # (auto) 0.01 K/uL (0.00-0.02); Immature Granulocytes % (auto) 0.2 %; Lymphocytes # (auto) 1.64 K/uL (1.2-3.4); Microcytosis Present; Monocytes # (auto) 0.42 K/uL (0.11-0.59); Monocytes % (auto) 6.7 %; Neutrophils % (auto) 63.3 %; Ovalocytes 1+; Target Cells 1+
[2020-10-17 07:31] LABS: BUN Creatinine Ratio 12.3 (10-20); Calcium 8.3 mg/dl (8.5-10.1); Creatinine Clr Calc Pharmacy 154.3 ml/min; Est GFR (African American) 137.7 ml/min; Est GFR (Non-African American) 118.8 ml/min; Potassium 3.7 mmol/L (3.5-5.1)
[2020-10-17] MEDS: FOLIC ACID 1 MG TAB PO SCH (07:59)
--- NOTE | 2020-10-17 12:42 | Hospitalist Progress Note ---
Date of Service October 17, 2020 Assessment & Plan (1) Severe sepsis: (2) Pneumonia: Plan: Patient presented with fever and left-sided chest pain. Patient was found to have leukocytosis on admission, along with lactic acidosis and tachycardia. Today patient reports she is feeling better. currently she is on room air. Hemodynamically patient is doing fine. -CTA chest negative for pulmonary embolism however shows a left basilar pneumonia -Will continue with ceftriaxone and azithromycin. -Blood cultures are negative thus far -Leukocytosis and lactic acidosis is resolved -Given smoking status, recommend pneumonia vaccine at discharge. (3) MATT (iron deficiency anemia): Plan: -Hgb 6.3 on admission. Patient was given 1 unit of PRBC on admission with f/u hemoglobin at 6.7. Patient was given another unit of PRBC on 10/16 evening and hemoglobin this morning at 6.8. She will be getting second unit of PRBC this morning. Trend CBC later today. Most recent 2 units that she got were frozen glycerized. Patient does not appear to be adequately responding well to transfusion units. Otherwise, remains hemodynamically stable. Remains afebrile. WBC is within normal limit. MCV of 61.8. Stool for Hemoccult negative Given her history of IgA, patient will need allergy and hematology outpatient follow-up. I spoke with [facility] physician Dr. Juarez Conklin ([phone]) on 10/17. He recommended to order forzen glycerized RBC. In case of emergency, if patient requires transfusion, can order regular PRBC. (4) Abnormal urinalysis: Plan: Cultures are negative. (5) DVT prophylaxis: Plan: -SCDs due to anemia Admission and Anticipated Discharge Date Admission Date: October 15, 2020 Subjective Patient reports she feels better but she still feels fatigue. Reports she is coughing but unable to bring anything up. Denies any further chest pain or any shortness of breath. Denies any nausea or vomiting. Denies any abdominal pain, diarrhea or dysuria. Other review of systems negative. Hemoglobin of 6.7 this morning. Patient did get 1 unit of PRBC overnight. Physical Exam Physical Exam: General: A&Ox3 HENT: NCAT, MMM, EOMI Eyes: PERRLA Neck: Supple, normal range of motion CVS: normal rate and rhythm Resp: b/l coarse breath sound Abdomen: Soft, ND/NT Extremities: Absence of any edema Neuro: face symmetric, strength grossly equal, no focal deficit Skin: warm and dry, no rashes/lesions/errythema MSK: no joint swelling/erythema Results & Data Results & Data ([facility]) Vital Signs (Past 12 Hours) Vital Signs Temp Pulse Pulse Resp BP BP BP 10/17/20 11:14 37 C 92 H 18 149/79 H 10/17/20 10:58 88 18 10/17/20 09:53 37 C 89 18 143/93 H 10/17/20 09:49 89 18 143/93 H 10/17/20 09:39 37 C 87 18 138/83 10/17/20 09:14 37 C 84 18 128/91 10/17/20 08:44 37.1 C 87 15 136/74 10/17/20 08:29 37 C 84 18 131/69 10/17/20 08:12 37 C 84 18 127/95 10/17/20 07:45 37.1 C 91 H 18 137/88 10/17/20 07:09 85 10/17/20 06:39 68 16 10/17/20 03:25 37.0 C 75 18 106/55 L Pulse Ox 10/17/20 11:14 98 10/17/20 10:58 98 10/17/20 09:53 99 10/17/20 09:49 99 10/17/20 09:39 97 10/17/20 09:14 95 10/17/20 08:44 98 10/17/20 08:29 95 10/17/20 08:12 97 10/17/20 07:45 99 10/17/20 07:09 10/17/20 06:39 97 10/17/20 03:25 96 (1) Pneumonia Laterality: left Lung location: lower lobe of lung Pneumonia type: due to unspecified organism Qualified Code(s): J18.9 - Pneumonia, unspecified organism
[2020-10-17] MEDS: cefTRIAXone SODIUM 2,000 MG in DEXTROSE 5% 50 ML IV SCH (13:23)
[2020-10-17 14:24] LABS: Hematocrit (blood only) 27.3 % (37-47); Hemoglobin 7.7 g/dL (12.0-16.0)
[2020-10-17] MEDS: AZITHROMYCIN 250 MG TAB PO SCH (14:55)
[2020-10-18] MEDS: ALBUT/IPRATROP 3MG/0.5MG NEB 3 ML VIAL NEB SCH ×3 (03:32→11:33)
[2020-10-18] MEDS: ACETAMINOPHEN 325 MG TAB PO SCH ×3 (04:23→13:07)
[2020-10-18 06:33] LABS: Basophils # (auto) 0.02 K/uL (0-0.2); Basophils % (auto) 0.4 %; Eosinophils # (auto) 0.19 K/uL (0-0.5); Eosinophils % (auto) 3.9 %; Hematocrit (blood only) 24.1 % (37-47); Immature Granulocytes # (auto) 0.03 K/uL (0.00-0.02); Immature Granulocytes % (auto) 0.6 %; Lymphocytes # (auto) 1.22 K/uL (1.2-3.4); Lymphocytes % (auto) 25.2 %; Mean Corpuscular Hemoglobin 18.4 pg (25-34); Mean Corpuscular Volume 63.3 fL (80-100); Monocytes % (auto) 6.2 %; Neutrophils # (auto) 3.09 K/uL (1.4-6.5); Neutrophils % (auto) 63.7 %; Platelet Count 183 K/uL (130-400); RDW Coefficient of Variation 25.7 % (11.5-14.5); RDW Standard Deviation 58.4 fL (36.4-46.3); Red Blood Count 3.81 M/uL (4.2-5.4); White Blood Count 4.85 K/uL (4.8-10.8)
[2020-10-18 07:16] LABS: Anisocytosis Present; Microcytosis Present; Ovalocytes 1+; Polychromasia 1+
[2020-10-18 08:04] LABS: Partial Thromboplastin Time 25.8 Seconds (21.0-31.0); Prothrombin Time 9.8 Seconds (9.0-12.0)
[2020-10-18] MEDS: FOLIC ACID 1 MG TAB PO SCH (08:32)
[2020-10-18] MEDS ORDERED: SODIUM CHLORIDE 0.9% 250 ML IV PRN (11:28)
[2020-10-18] MEDS ORDERED: ALBUT/IPRATROP 3MG/0.5MG NEB 3 ML VIAL NEB PRN (11:30)
[2020-10-18] MEDS ORDERED: PNEUMOCOCCAL POLYSACCHARIDES 25 MCG/0.5 ML VIAL/SYR IM ONE (11:31)
--- NOTE | 2020-10-18 11:49 | Discharge Summary ---
Date of Service October 18, 2020 Admission HPI Per Admitting Provider 29-year-old female with PMH asthma, IgA deficiency, iron deficiency anemia, tobacco abuse, and other problems listed below who presents to the ED for evaluation of fever and left-sided rib pain. Patient reports she developed a fever last evening of around 101 and persisted through to today. Patient reports she also has a left-sided rib pain that radiates up over her left breast and into her back. Patient describes the pain is constant, achy, sharp at times. She reports a chronic cough from smoking which is unchanged from baseline. Had some nausea and vomiting last evening which she attributed to GERD. Denies hematemesis or coffee-ground emesis. No abdominal pain or diarrhea. Reports a history of asthma and uses albuterol inhaler weekly. Also carries a history of iron deficiency anemia and is to be on iron pills however patient reports he does not tolerate them. Patient denies lightheadedness, dizziness, diaphoresis, syncopal events. No urinary symptoms. In the ED, patient was tachycardic on arrival. Labs show WBC 20 K, Hgb 6.3, K+ 3.3, lactate 2.5 -> 2.1. Afebrile, BP stable. CTA chest negative for pulmonary embolism however shows a left basilar pneumonia. Patient was given IV azithrom ycin, IV ceftriaxone, IV Dilaudid, IV ketorolac, IV morphine, IV Zofran, IVF. Admission Exam Per Admitting Provider Constitutional: WD/WN, vitals as above Eyes: PERRL, conjunctivae normal, anicteric sclerae ENMT: external ear and nose normal, oropharynx normal Respiratory: normal respiratory effort; no respiratory distress Auscultation: + diminished lung sounds (left lung hoyt); no wheezes Cardiovascular: Rate/Rhythm: regular rhythm and + tachycardic Vessels: normal peripheral pulses Extremities: no edema Gastrointestinal (Abdomen): normal bowel sounds, soft, nontender, no hepatosplenomegaly Musculoskeletal: no cyanosis or clubbing, extremities motor strength 5/5 Skin: no rashes, warm and dry Neurologic: PERRL, EOMI, accommodation nl, no face palsy, no dysarthria Psychiatric: A+Ox3, euthymic affect Principal Diagnosis sepsis Pneumonia Tobacco use IgA deficiency iron deficiency anemia folate deficiency Discharge Exam CONSTITUTIONAL: obese, vitals as above, generally well-appearing EYES: normal conjunctivae, no scleral icterus ENT: external ear and nose normal, MMM NECK: no LAD RESPIRATORY: clear to auscultation bilaterally, no crackles, rales or wheezes, normal respiratory effort CARDIOVASCULAR: regular rate and rhythm, S1 and 2 heard without murmurs, gallops or rubs, no JVD, no peripheral edema GASTROINTESTINAL: soft, nontender, nondistended MUSCULOSKELETAL: strength 5/5 throughout, head is normocephalic and atraumatic SKIN: warm and dry NEUROLOGIC: CN 2-12 grossly intact, normal cognition, normal speech, no tremor, no gross focal deficits. PSYCHIATRIC: alert cooperative and oriented to person, place and time. Euthymic mood, makes good eye contact, language grossly intact, recent and remote memory grossly intact. Discharge Data Allergies Allergy/AdvReac Type Severity Reaction Status Date / Time prednisone AdvReac Intermediate CONFUSED,CO Verified 10/15/20 13:24 MBATIVE Consultations 10/15/20 14:03 ED Decision to Admit Stat Ordered Studies Laboratory Results WBC 4.85 K/uL (4.8-10.8) 10/18/20 06:12 RBC 3.81 M/uL (4.2-5.4) L 10/18/20 06:12 Hgb 7.0 g/dL (12.0-16.0) L 10/18/20 06:12 Hct 24.1 % (37-47) L 10/18/20 06:12 MCV 63.3 fL (80-100) L 10/18/20 06:12 MCH 18.4 pg (25-34) L 10/18/20 06:12 MCHC 29.0 g/dL (32-36) L 10/18/20 06:12 RDW Std Deviation 58.4 fL (36.4-46.3) H 10/18/20 06:12 RDW Coeff of Jewell 25.7 % (11.5-14.5) H 10/18/20 06:12 Plt Count 183 K/uL (130-400) 10/18/20 06:12 Immature Gran % (Auto) 0.6 % 10/18/20 06:12 Neut % (Auto) 63.7 % 10/18/20 06:12 Lymph % (Auto) 25.2 % 10/18/20 06:12 [place] % (Auto) 6.2 % 10/18/20 06:12 Eos % (Auto) 3.9 % 10/18/20 06:12 Baso % (Auto) 0.4 % 10/18/20 06:12 Reticulocyte % (Auto) 1.7 % (0.5-2.0) 10/15/20 14:25 Neut # (Auto) 3.09 K/uL (1.4-6.5) 10/18/20 06:12 Lymph # (Auto) 1.22 K/uL (1.2-3.4) 10/18/20 06:12 [place] # (Auto) 0.30 K/uL (0.11-0.59) 10/18/20 06:12 Eos # (Auto) 0.19 K/uL (0-0.5) 10/18/20 06:12 Baso # (Auto) 0.02 K/uL (0-0.2) 10/18/20 06:12 Reticulocyte # 0.06 10^6/uL (0.02-0.10) 10/15/20 14:25 Immature Gran # (Auto) 0.03 K/uL (0.00-0.02) H 10/18/20 06:12 Absolute Nucleated RBC 0.02 K/uL (0-0) H 10/16/20 18:12 Nucleated RBC % (auto) 0.2 % 10/16/20 18:12 Dohle Bodies 1+ 10/16/20 18:12 Polychromasia 1+ 10/18/20 06:12 Hypochromasia Present 10/16/20 18:12 Anisocytosis Present 10/18/20 06:12 Microcytosis Present 10/18/20 06:12 Target Cells 1+ 10/17/20 06:22 Ovalocytes 1+ 10/18/20 06:12 Echinocytes 1+ 10/17/20 06:22 PT 9.8 Seconds (9.0-12.0) 10/18/20 07:40 INR 1.0 (0.9-1.1) 10/18/20 07:40 APTT 25.8 Seconds (21.0-31.0) 10/18/20 07:40 PTT Ratio 1.0 10/18/20 07:40 D-Dimer 540 ug/L FEU (0-500) H* 10/15/20 12:00 Sodium 142 mmol/L (136-145) 10/17/20 06:22 Potassium 3.7 mmol/L (3.5-5.1) 10/17/20 06:22 Chloride 113 mmol/L (98-107) H 10/17/20 06:22 Carbon Dioxide 26 mmol/L (21-32) 10/17/20 06:22 Anion Gap 3.0 (3-11) 10/17/20 06:22 BUN 8 mg/dl (7-18) 10/17/20 06:22 Creatinine 0.67 mg/dl (0.6-1.2) 10/17/20 06:22 Est Cr Clr Drug Dosing 154.3 ml/min 10/17/20 06:22 Est GFR ( Amer) 137.7 ml/min 10/17/20 06:22 Est GFR (Non-Af Amer) 118.8 ml/min 10/17/20 06:22 BUN/Creatinine Ratio 12.3 (10-20) 10/17/20 06:22 Glucose 85 mg/dl (70-99) 10/17/20 06:22 Lactate 1.4 mmol/L (0.4-2.0) 10/15/20 22:35 Calcium 8.3 mg/dl (8.5-10.1) L 10/17/20 06:22 Iron 10 mcg/dl (35-150) L 10/15/20 14:25 TIBC 446 mcg/dl (250-450) 10/15/20 14:25 Transferrin 293 mg/dl (200-360) 10/15/20 14:25 Ferritin 32.7 ng/ml (8-388) 10/15/20 14:25 Total Bilirubin 1.3 mg/dl (0.2-1) H 10/15/20 12:00 AST 7 U/L (15-37) L 10/15/20 12:00 ALT 17 U/L (12-78) 10/15/20 12:00 Alkaline Phosphatase 84 U/L (45-117) 10/15/20 12:00 Troponin I < 0.015 ng/ml (0-0.045) 10/15/20 12:00 Total Protein 6.4 gm/dl (6.4-8.2) 10/15/20 12:00 Albumin 3.6 gm/dl (3.4-5.0) 10/15/20 12:00 Globulin 2.8 gm/dl (2.5-4.0) 10/15/20 12:00 Albumin/Globulin Ratio 1.3 (0.9-2) 10/15/20 12:00 Vitamin B12 362 pg/ml (193-986) 10/15/20 14:25 Folate 2.80 ng/ml (>5.38) L 10/15/20 14:25 Urine Color Dark Yellow 10/15/20 12:58 Urine Appearance Cloudy (Clear) A 10/15/20 12:58 Urine pH 5.0 (4.5-7.5) 10/15/20 12:58 Ur Specific Mccoy 1.021 (1.000-1.030) 10/15/20 12:58 Urine Protein Trace (Negative) H 10/15/20 12:58 Urine Glucose (UA) Negative (Negative) 10/15/20 12:58 Urine Ketones Trace (Negative) H 10/15/20 12:58 Urine Blood Negative (Negative) 10/15/20 12:58 Urine Nitrite Negative (Negative) 10/15/20 12:58 Urine Bilirubin 1+ (Negative) H 10/15/20 12:58 Urine Urobilinogen Negative (Negative) 10/15/20 12:58 Ur Leukocyte Esterase 2+ (Negative) H 10/15/20 12:58 Urine WBC (Auto) >30 /hpf (0-5) H 10/15/20 12:58 Urine RBC (Auto) 0-4 /hpf (0-4) 10/15/20 12:58 U Hyaline Cast (Auto) 5-10 /lpf (0-5) H 10/15/20 12:58 U Epithel Cells (Auto) >30 /lpf (0-5) H 10/15/20 12:58 Urine Bacteria (Auto) 1+ (Negative) H 10/15/20 12:58 POC Ur Test Cancelled 10/15/20 Unknown Anaplasma Smear See Comment 10/15/20 12:00 Lyme Disease IgG Ab Negative (Negative) 10/15/20 12:00 Lyme Disease IgM Ab Negative (Negative) 10/15/20 12:00 COVID-19 Eval Order Covid19 at [facility] 10/15/20 12:05 SARS-CoV-2 (PCR) NEGATIVE (Negative) 10/15/20 12:05 Blood Type O Positive 10/15/20 12:58 Blood Type Recheck O Positive 10/15/20 14:25 Antibody Screen NEGATIVE 10/15/20 12:58 Crossmatch See Detail 10/15/20 12:58 Impressions Chest X-Ray 10/15/20 11:55 XR chest 1V portable HISTORY: 29 years-old Female Fever, chest pain acute fever with atypical chest pain COMPARISON: Chest radiograph 04/25/2020 TECHNIQUE: Portable AP view of the chest FINDINGS: Cardiomediastinal and hilar silhouettes are within normal limits. No airspace opacities of the left lung base. No pneumothorax, pleural effusion or overt pulmonary edema. Bones appear normal. IMPRESSION: Lateral left lung base airspace opacities are suggestive of pneumonia. ACT 112: Negative or not required by law. The above report was generated using voice recognition software. It may contain grammatical, syntax or spelling errors. Electronically signed by: Cade Hay M.D. 10/15/2020 12:34 PM Chest CTA 10/15/20 12:42 CT ANGIOGRAM OF THE CHEST CLINICAL HISTORY: left chest pain, elevated dimer, fever COMPARISON STUDY: No previous studies for comparison. TECHNIQUE: Following the IV administration of 120 mL of Optiray, CT angiogram of the thorax was performed from the thoracic inlet to the lung bases utilizing the pulmonary embolus protocol. Images are reviewed in the axial, sagittal, and coronal planes. IV contrast was administered without complication. MIP imaging was performed. A dose lowering technique was utilized adhering to the principles of ALARA. CT DOSE: 513.12 mGycm FINDINGS: There is adequate opacification within main pulmonary artery. No definite central pulmonary embolus is seen. Evaluation of peripheral branches of the pulmonary artery is limited due to motion artifact. No dilatation of the main pulmonary is seen. No right heart strain demonstrated. No pathologically enlarged axillary mediastinal or hilar lymph nodes were visualized. There was no evidence of thoracic aortic dilatation. Tracheobronchial tree is patent. Consolidative lesion is seen within mid-inferior anterior aspect of the left lower lobe. No pleural effusions are visualized. Limited evaluation of upper abdominal viscera shows no evidence of acute abnormalities. Osseous structures are unremarkable. IMPRESSION: 1. No acute central pulmonary embolus. Evaluation of peripheral branches of the pulmonary artery is limited due to motion artifact. There is no secondary signs of pulmonary embolus. 2. Consolidative lesion within left lower lobe likely representing pneumonia. Follow-up evaluation with CT of the chest in 4-6 weeks is recommended to document resolution. ACT 112: Negative or not required by law. The above report was generated using voice recognition software. It may contain grammatical, syntax or spelling errors. Electronically signed by: Eva Rayo DO 10/15/2020 2:12 PM Hospital Course (1) Severe sepsis: (2) Pneumonia: Patient presented with fever and left-sided chest pain. Patient was found to have leukocytosis on admission, along with lactic acidosis and tachycardia. She clnically improved on Rocephin and azithromycin and was oxygenating well on room air. -CTA chest negative for pulmonary embolism however shows a left basilar pneumonia -Blood cultures were negative at time of discharge. -Given smoking status, pneumovax given prior to discharge. (3) MATT (iron deficiency anemia): -Hgb 6.3 on admission. She was transfused two units of blood while admitted with H/H 10/12 on day of discharge. Although additional blood was recommended, given her IgA deficient status, she needed washed RBCs from the [place] which would extend her stay overnight. She was unwilling to do this and was reportedly asymptomatic. Outpatient hematology followup was recommended given significant iron deficiency anemia and difficulty with oral supplementation in the past. Repeat CBC recommended within the week with PCP office. Patient verbalized understanding with intent to comply. (4) IgA deficiency: (5) Tobacco use: Total Time Total Time Spent Total Time Spent (In Minutes): 60 Discharge Plan Discharge Items Patient Disposition: Home - Self-Care Reason For Visit: PNEUMONIA, SEPSIS, ANEMIA Discharge Diagnosis: sepsis Pneumonia Tobacco use IgA deficiency iron deficiency anemia folate deficiency Condition on Discharge: Good Activity: Resume your previous activity Non-emergency contact: Primary Care Provider Call non-emergency contact if: you have any medication questions, your symptoms worsen, your pain is not controlled, your pain is worsening, your pain is unusual for you, your pain is concerning for you and you have a fever Follow-up/Referrals: Liyah Molina DO [Primary Care Provider] - (Date & Time 10/25/2020 11:00 AM Provider Liyah Molina DO Department [facility] ) Diet: Regular Addtl Attending Provider Instructions: Please complete you antibiotic course and ensure a repeat chest CT in 4-6 weeks. This may be ordered by your primary care provider (PCP) Please consider complete smoking cessation as this is terrible for you health and may have been the reason you contracted pneumonia causing this hospital stay. It is recommended that you follow-up with your primary care physician within one week of discharge from the hospital. This will be important to repeat you blood count and ensure adequate referrals to hematology and allergy specialists are in place. Additionally, they can assist you with smoking cessation. It is recommended that you consider referral to a features editor who may assist you with the management of your anemia. Additionally, you may want to consider referral to an Allergy/flight service specialist who can assist you with your seasonal allergies and speak to you more about the severity and precautions needed with your IgA deficiency. Please consider wearing a medical alert br acelet which helps medical providers identify you as a patient with IgA deficiency. It was a pleasure taking care of you! Please call if you have any questions or problems. You can reach a [facility] hospitalist on duty at [facility] 24 hours a day by calling [phone]. Take care of yourself. Aixa De Leon DO [facility] Hospitalist Pending Studies at Discharge: No Stand-Alone Forms: My [facility], Smoking Cessation Medications and DC Order Prescriptions: New folic acid 1 mg Tablet 1 mg PO QAM Qty: 30 RF: 0 ferrous sulfate 325 mg (65 mg iron) tablet 325 mg PO BID Qty: 60 RF: 0 amoxicillin-pot clavulanate [Augmentin] 875-125 mg tablet 1 tab PO BID Qty: 10 RF: 0 Continued albuterol sulfate [ProAir HFA] 90 mcg/actuation HFA aerosol inhaler 2 puff INHALATION Q4H PRN (Reason: Shortness Of Breath Or Wheezing) RF: 0 Discharge Orders: Discharge Order (Routine); Ordered 10/18/20 Ordered By: Aixa De Leon Admission Data Admit Date/Time: 10/15/20 14:08 Attending Provider: Aixa De Leon Admit Provider: Aixa De Leon Primary Care Provider: Liyah Molina Other Providers: Aixa De Leon Other Interventions: Discharge Summary Assessment (RN) Last Done: 10/18/20 14:15
[2020-10-18] MEDS ORDERED: ACETAMINOPHEN 325 MG TAB PO SCH (12:00)
[2020-10-18] MEDS ORDERED: diphenhydrAMINE Capsule 25 MG CAP PO SCH (12:00)
[2020-10-18] MEDS: cefTRIAXone SODIUM 2,000 MG in DEXTROSE 5% 50 ML IV SCH (13:04)
[2020-10-18] MEDS: AZITHROMYCIN 250 MG TAB PO SCH (14:14)
== END 2020-10-18 14:15 | disposition home or self-care (01) | DRG 871 ==
LOC: ED 11:07 → SUATTDRO 14:08 → EDINP 14:08 → 2E 17:49

== ENCOUNTER 2022-07-26 23:11 | Observation (INO) ==
--- NOTE | 2022-07-26 23:23 | Emergency Department Note ---
Impression & Plan Syncope Admit to the [facility] ED Provider Note NAME: ADRIANNE HADDAD AGE: 31 SEX: F ARRIVES VIA: Ambulance INFORMANT: Patient ED PROVIDER(S): Nancy Overton DO CHIEF COMPLAINT: Unresponsive episode PLAN: Disposition: Admit to the [facility] Condition: Fair MEDICAL DECISION MAKING: This is a 31-year-old female patient who had an episode of syncope at home and then was extremely confused afterwards for some time. She has a family history of seizures. By history, her father had seizures. The patient herself has no history of seizures but this episode was concerning for cough syncope versus seizure activity. Laboratory studies were unremarkable. There was no leukocytosis or significant anemia. Electrolytes were normal. There was hypoglycemia. CT scan of the brain was unremarkable. Seizure precautions were taken here in the emergency department. I discussed th e case with neurology and they recommended admission to the hospital for EEG and further neurology evaluation. Triage Nursing notes reviewed and agree with them. Additional history obtained from the patient's mother who is at the bedside Vital Signs: reviewed and remarkable for hypertension Differential diagnosis: Cough syncope; seizure; cardiac dysrhythmia ER treatment provided: Cardiac monitoring Seizure precautions Twelve-lead EKG IV Toradol Diagnostics interpreted by me: ECG: Normal sinus rhythm at a rate of [address] segment elevation or signs of ischemia. There is no ectopy. QTc is 445 ms. Cardiac Monitoring: Normal sinus rhythm at a rate of 90 Laboratory studies: See below Imaging studies: As per stat rad CT scanning of the brain: See radiology report As per my independent interpretation-chest x-ray-no acute pulmonary infiltrates or opacities. Consultants: Neurology-Dr. Rangel HPI: arrives for evaluation of syncope. Patient describes lying in bed with her twin 10-year-old children. She began to cough and jumped up from bed and went to the bathroom and apparently passed out to the floor as her children heard a thump. She does not remember anything but feeling that things were black and biting her tongue. When she came to, her children were crying if she was on the couch. She apparently had called her mother telling her that she did not know what was happening and that she should come to the house to help her. PAST MEDICAL HISTORY:See Below PAST SURGICAL HISTORY:See Below FAMILY HISTORY:See Below SOCIAL HISTORY:Lives at home alone with her children; works for [employer] HOME MEDICATIONS:See list ALLERGIES:See list VITALS:See Below PHYSICAL EXAMINATION: HEENT: Head - normocephalic and atraumatic. Pupils are equal, round, and reactive to light. Extraocular eye muscles are intact, and sclera are ani cteric. Nose - moist nasal mucosa without discharge. Mouth - moist buccal mucosa. Oropharynx is nonerythematous and there is no tonsillar exudate or edema noted. Neck: Supple; no cervical lymphadenopathy. No pain to palpation over the posterior cervical spine Heart: Regular rate and rhythm. There is a normal S1 and S2 with no murmurs, clicks, or gallops appreciated. Lungs: Clear to auscultation bilaterally with no wheezes, rales, or rhonchi. Abdomen: Soft, completely nontender, nondistended, with good bowel sounds. There are no palpable pulsatile masses or hepatosplenomegaly. There is no guarding, rigidity, or rebound noted. Extremities: No evidence of cyanosis, clubbing, or edema. There are easily palpable peripheral pulses. Skin: warm and dry with good turgor and no rashes. Neuro: Nonfocal: Moves all 4 extremities ED COURSE: Times/Reassessments: 2320: Patient was evaluated in room B11. An order was placed for continuous cardiac monitoring. The patient was in a normal sinus rhythm at a rate of 90. Seizure precautions were taken. Laboratory studies were drawn as above. A twelve-lead EKG was obtained as described above. Patient will go for CT scan of the brain. Upon returning from radiology, the patient was complaining of a headache and was given IV Toradol for pain. She went for chest x-ray because she has a chronic cough. This was unremarkable. I discussed the results of the labs and x-ray/CT scan with the patient. Discussed the case with Dr. Rangel from neurology and he recommended admission to the hospital. I then [facility] the [facility] and he will evaluate for further management. Nancy Overton DO Past Med/Surg History Medical History Anemia Asthma Celiac disease IgA deficiency Pneumonia Tobacco use Surgical History H/O hernia repair History of cholecystectomy Hx of appendectomy Hx of tympanostomy tubes Family History Other Cancer Diabetes Gallbladder disease Heart disease Hypertension Lung disease Seizure Social History Smoking Status: Current every day smoker Tobacco Type: Cigarettes Cigarettes Per Day: 1/2-1 PPD; Second Hand Exposure: No; Do You Dip or Chew Tobacco: No; Hx Alcohol Use: No Hx Substance Use: No Preferred Language: Slovenian Communication Ability: Effective Case Preparer And Liner Required: No Beliefs That Will Affect Care: None marital status: Current Living Situation: Spouse current occupational status: employed Other Information That Helps Us Care for You: No Feels Safe at Home: Yes Safety Concerns: Feels Safe At This Time Assistive Devices: None Allergies Allergies Allergy/AdvReac Type Severity Reaction Status Date / Time prednisone AdvReac Intermediate CONFUSED,CO Verified 06/10/22 18:40 MBATIVE Home Meds Home Medications Medication Instructions Recorded Confirmed albuterol sulfate 90 mcg/actuation 2 puff inhalation Q4H PRN 10/15/20 07/27/22 aerosol inhaler (ProAir HFA) Shortness Of Breath Or Wheezing immun glob G 10 gram/50 mL(20 0 ml subcut WK 05/30/21 07/27/22 %)-pro-IgA 0-50 mcg/mL subcutaneous soln (Hizentra) Iron Infusion 1 dose IV DIRECTED 06/10/22 07/27/22 ibuprofen 600 mg tablet 600 mg PO DIRECTED PRN Pain 06/10/22 07/27/22 lidocaine-prilocaine 2.5 %-2.5 % 1 applic topical DIRECTED PRN 06/10/22 07/27/22 topical cream PRIOR TO INFUSIONS montelukast 10 mg tablet 10 mg PO DAILY 07/27/22 07/27/22 Results & Data (ED) Vital Signs Vital Signs - 24 hr 07/26/22 23:16 07/26/22 23:22 07/27/22 03:22 Temperature 36.8 C Temperature Source Oral Pulse Rate 90 91 H 112 H Pulse Rate from SpO2 Sensor Respiratory Rate 20 Respiratory Effort / Characteristics Non-Labored Spontaneous Respiratory Depth Normal Respiratory Pattern Regular Blood Pressure 161/107 H Blood Pressure Mean 125 Pulse Oximetry 98 Oxygen Delivery Method Room Air Sepsis Recent Fever Within 48 Hours No Sepsis New/Unexplained Change in Mental Status Yes Sepsis Action Taken by Nursing No Action Required 07/27/22 01:00 07/27/22 01:00 07/27/22 02:00 Temperature Temperature Source Pulse Rate 91 H Pulse Rate from SpO2 Sensor 94 H Respiratory Rate 24 Respiratory Effort / Characteristics Respiratory Depth Respiratory Pattern Blood Pressure 133/97 165/128 H Blood Pressure Mean 109 140 Pulse Oximetry 96 Oxygen Delivery Method Room Air Sepsis Recent Fever Within 48 Hours Sepsis New/Unexplained Change in Mental Status Sepsis Action Taken by Nursing 07/27/22 02:00 Temperature Temperature Source Pulse Rate 88 Pulse Rate from SpO2 Sensor 89 Respiratory Rate 21 Respiratory Effort / Characteristics Respiratory Depth Respiratory Pattern Blood Pressure Blood Pressure Mean Pulse Oximetry 96 Oxygen Delivery Method Room Air Sepsis Recent Fever Within 48 Hours Sepsis New/Unexplained Change in Mental Status Sepsis Action Taken by Nursing Laboratory Data 07/26/22 22:50 07/26/22 22:50 Lab Results 07/26/22 07/26/22 07/27/22 Range/Units 22:50 22:50 02:57 WBC 8.75 (4.8-10.8) K/ul RBC 4.88 (4.20-5.40) M/uL Hgb 14.5 (12.0-16.0) g/dl Hct 42.1 (37.0-47.0) % MCV 86.3 (80.0-100.0) fL MCH 29.7 (25.0-34.0) pg MCHC 34.4 (32.0-36.0) g/dL RDW Std Deviation 51.1 H (36.4-46.3) fL RDW Coeff of Jewell 16.2 H (11.5-14.5) % Plt Count 267 (130-400) K/uL MPV 9.7 (9.4-12.4) fL Immature Gran % (Auto) 0.3 % Neut % (Auto) 56.8 % Lymph % (Auto) 32.5 % [place] % (Auto) 6.9 % Eos % (Auto) 2.9 % Baso % (Auto) 0.6 % Neut # (Auto) 4.98 (1.40-6.50) K/uL Lymph # (Auto) 2.84 (1.2-3.4) K/uL [place] # (Auto) 0.60 H (0.11-0.59) K/uL Eos # (Auto) 0.25 (0-0.50) K/uL Baso # (Auto) 0.05 (0-0.2) K/uL Immature Gran # (Auto) 0.03 (0.01-0.20) K/uL Sodium 136 (136-145) mmol/L Potassium 3.5 (3.5-5.1) mmol/L Chloride 100 (98-107) mmol/L Carbon Dioxide 29 (21-32) mmol/L Anion Gap 7 (3-11) BUN 9 (6-23) mg/dl Creatinine 0.80 (0.6-1.2) mg/dl Est Cr Clr Drug Dosing 124.5 ml/min Est GFR ( Amer) 113.9 ml/min Est GFR (Non-Af Amer) 98.2 ml/min BUN/Creatinine Ratio 11.3 (10-20) Glucose 84 (70-99(Fasting)) mg/dl Calcium 8.6 (8.6-10.3) mg/dl Magnesium 1.9 (1.7-2.4) mg/dl Total Bilirubin 0.3 (0.2-1.0) mg/dl AST 28 (13-39) U/L ALT 38 (7-52) U/L Alkaline Phosphatase 94 (34-104) U/L Total Protein 6.8 (6.0-8.3) gm/dl Albumin 4.2 (3.4-5.0) gm/dl Globulin 2.6 (2.5-4.0) gm/dl Albumin/Globulin Ratio 1.6 (0.9-2) SARS-CoV-2, RNA, NAAT NEGATIVE (NEGATIVE) Administered Medications Lactated Ringer's (Lr) 1,000 mls @ 50 mls/hr IV .Q20H ONE Stop: 07/27/22 23:04 Last Infusion: 07/27/22 05:45 Dose: 50 mls/hr Documented By: Infusion: 07/27/22 04:25 Dose: 0 mls/hr Documented By: Admin: 07/27/22 03:49 Dose: 50 mls/hr Documented By: Discontinued Medications Clonidine HCl (Clonidine Hcl 0.1 Mg Tab) 0.1 mg PO NOW ONE Stop: 07/27/22 03:57 Last Admin: 07/27/22 06:38 Dose: 0.1 mg Documented By: NGOC Gadobutrol (Gadobutrol 65ml Vial) 10.4 ml IV ONCE ONE Stop: 07/27/22 05:09 Last Admin: 07/27/22 05:08 Dose: 10.4 ml Documented By: EBONI Ketorolac Tromethamine (Ketorolac 30 Mg/Ml Vial) 30 mg IV NOW ONE Stop: 07/27/22 02:02 Last Admin: 07/27/22 02:15 Dose: 30 mg Documented By: SHIELA Menthol (Cough Drop (Sugar Free) Loyda 24 Loyda/1 Box) 1 loyda BUCCAL NOW STA Stop: 07/27/22 07:01 Last Admin: 07/27/22 07:04 Dose: 1 loyda Documented By: NGOC Menthol (Cough Drop (Sugar Free) Loyda 24 Loyda/1 Box) Confirm Administered Dose 24 loyda BUCCAL .STK-MED ONE Stop: 07/27/22 07:04 Last Admin: 07/27/22 07:05 Dose: Not Given Documented By: NGOC Imaging Data Radiologist's Impression: Head CT 07/26/22 23:44 Exam(s): CT HEAD Without Contrast EXAM: CT Head Without Intravenous Contrast CLINICAL HISTORY: Seizure. TECHNIQUE: Axial computed tomography images of the head/brain without intravenous contrast. CTDI is 35.34 mGy and DLP is 537.48 mGy-cm. Automated exposure control was utilized for the study. A dose lowering technique was utilized adhering to the principles of ALARA. COMPARISON: CT head 12/04/2020 FINDINGS: Brain: Unremarkable. No significant white matter disease. No intracranial hemorrhage, mass-effect or midline shift. No abnormal extra axial fluid. No evidence of acute infarct. Ventricles: Unremarkable. No ventriculomegaly. Bones/joints: Unremarkable. No acute fracture. Soft tissues: Unremarkable. Sinuses: There is mild mucosal thickening of the paranasal sinuses. Mastoid air cells: Moderate right and large left mastoid effusion. IMPRESSION: 1. No acute intracranial finding. 2. Moderate right and large left mastoid effusion. Electronically signed by: Dagmar Hamilton MD 07/27/22 00:31 AM Discharge Plan Visit Data Chief Complaint: Syncope ED Provider: Nancy Overton Discharge Problem: Syncope Patient Disposition: Admitted As Inpatient Discharge Instructions Interventions: ED Discharge Assessment Last Done: 07/27/22 05:33
[2022-07-27 00:02] LABS: Basophils # (auto) 0.05 K/uL (0-0.2); Basophils % (auto) 0.6 %; Eosinophils # (auto) 0.25 K/uL (0-0.50); Eosinophils % (auto) 2.9 %; Hematocrit (blood only) 42.1 % (37.0-47.0); Hemoglobin 14.5 g/dl (12.0-16.0); Immature Granulocytes # (auto) 0.03 K/uL (0.01-0.20); Immature Granulocytes % (auto) 0.3 %; Lymphocytes # (auto) 2.84 K/uL (1.2-3.4); Lymphocytes % (auto) 32.5 %; Mean Corpuscular Hemoglobin 29.7 pg (25.0-34.0); Mean Corpuscular Hgb Conc 34.4 g/dL (32.0-36.0); Mean Corpuscular Volume 86.3 fL (80.0-100.0); Mean Platelet Volume 9.7 fL (9.4-12.4); Monocytes % (auto) 6.9 %; Neutrophils # (auto) 4.98 K/uL (1.40-6.50); Neutrophils % (auto) 56.8 %; Platelet Count 267 K/uL (130-400); RDW Coefficient of Variation 16.2 % (11.5-14.5); RDW Standard Deviation 51.1 fL (36.4-46.3); Red Blood Count 4.88 M/uL (4.20-5.40); White Blood Count 8.75 K/ul (4.8-10.8)
[2022-07-27 00:13] LABS: Albumin Level 4.2 gm/dl (3.4-5.0); Bilirubin,Total 0.3 mg/dl (0.2-1.0); Calcium 8.6 mg/dl (8.6-10.3); Potassium 3.5 mmol/L (3.5-5.1)
[2022-07-27 00:19] LABS: Albumin Globulin Ratio 1.6 (0.9-2); BUN Creatinine Ratio 11.3 (10-20); Creatinine Clr Calc Pharmacy 124.5 ml/min; Est GFR (African American) 113.9 ml/min; Est GFR (Non-African American) 98.2 ml/min; Globulin 2.6 gm/dl (2.5-4.0); Total Protein 6.8 gm/dl (6.0-8.3)
--- NOTE | 2022-07-27 00:32 | CT Scan Report ---
Exam(s): CT HEAD Without Contrast EXAM: CT Head Without Intravenous Contrast CLINICAL HISTORY: Seizure. TECHNIQUE: Axial computed tomography images of the head/brain without intravenous contrast. CTDI is 35.34 mGy and DLP is 537.48 mGy-cm. Automated exposure control was utilized for the study. A dose lowering technique was utilized adhering to the principles of ALARA. COMPARISON: CT head 12/04/2020 FINDINGS: Brain: Unremarkable. No significant white matter disease. No intracranial hemorrhage, mass-effect or midline shift. No abnormal extra axial fluid. No evidence of acute infarct. Ventricles: Unremarkable. No ventriculomegaly. Bones/joints: Unremarkable. No acute fracture. Soft tissues: Unremarkable. Sinuses: There is mild mucosal thickening of the paranasal sinuses. Mastoid air cells: Moderate right and large left mastoid effusion. IMPRESSION: 1. No acute intracranial finding. 2. Moderate right and large left mastoid effusion. Electronically signed by: Dagmar Hamilton MD 07/27/22 00:31 AM
[2022-07-27] MEDS ORDERED: KETOROLAC 30 MG/ML VIAL IV ONE (02:01)
[2022-07-27] MEDS ORDERED: LACTATED RINGER'S 1,000 ML IV ONE (03:05)
[2022-07-27 03:29] LABS: Magnesium 1.9 mg/dl (1.7-2.4)
--- NOTE | 2022-07-27 03:52 | History & Physical Report ---
Date of Service July 27, 2022 Assessment & Plan (1) Syncope: Plan: Unwitnessed syncopal event Possible new onset seizures given tongue biting episode family history of seizure disorder some association between atypical seizures and common variable immunodeficiency Rule out orthostasis, arrhythmia, obstructive cardiac pathology as other differentials Situational hypertension anxiety/mood disorder, some stress with ongoing divorce proceedings hx celiac disease bronchial asthma, at baseline recurrent otitis media, no unusual symptoms as per patient despite mastoid effusions noted on CT imaging ongoing tobacco abuse OBS Medical telemetry EEG, brain MRI for possible new onset seizures Seizure precautions, Ativan as needed active seizures Neurology consult Re: New onset seizures (ER provider already in touch with Dr. Rangel who recommends on holding off on AED Rx for now.) Check orthostatic vitals, TTE Re: Syncope Clonidine as needed if with persistently elevation Nicotine patch as needed DVT prophylaxis. SCDs for now until brain tumor on MRI ruled out given headache symptoms Full code Text document was generated using [employer] voice recognition software. It may contain grammatical or spelling errors. Kindly contact undersigned for clarification of any documentation item in question. History of Present Illness Chief Complaint: Passed out, possible seizures Primary Care Provider: Hemalatha Brito MD History obtained from patient and records. Medical history significant for anxiety/mood disorder, celiac disease, common variable immunodeficiency, bronchial asthma, recurrent otitis media, ongoing tobacco abuse. Patient was talking to her twin daughters last night when one of her daughters noted that she looks scared. Patient woke up on the floor of the bathroom. Not sure how she got there. Patient thinks she bit her tongue. No incontinence. Chronic headache symptoms which she attributes to common variable immunodeficiency. Some stress with ongoing divorce proceedings. Some disruption of usual sleep schedule the last week. Patient denies chest pain, SOB, abdominal pain. No unusual ear drainage. No prior history of seizures. No history of alcohol abuse. Patient brought to the ER for evaluation after EMS alerted by patient's family. 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 Allergies Allergy/AdvReac Type Severity Reaction Status Date / Time prednisone AdvReac Intermediate CONFUSED,CO Verified 06/10/22 18:40 MBATIVE Home Medications Medication Instructions Recorded Confirmed Type albuterol sulfate 90 mcg/actuation 2 puff inhalation Q4H PRN 10/15/20 07/27/22 History aerosol inhaler (ProAir HFA) Shortness Of Breath Or Wheezing immun glob G 10 gram/50 mL(20 0 ml subcut WK 05/30/21 07/27/22 History %)-pro-IgA 0-50 mcg/mL subcutaneous soln (Hizentra) Iron Infusion 1 dose IV DIRECTED 06/10/22 07/27/22 History ibuprofen 600 mg tablet 600 mg PO DIRECTED PRN Pain 06/10/22 07/27/22 History lidocaine-prilocaine 2.5 %-2.5 % 1 applic topical DIRECTED PRN 06/10/22 07/27/22 History topical cream PRIOR TO INFUSIONS montelukast 10 mg tablet 10 mg PO DAILY 07/27/22 07/27/22 History Past Med/Surg History Medical History Anemia Asthma Celiac disease IgA deficiency Pneumonia Tobacco use Surgical History H/O hernia repair History of cholecystectomy Hx of appendectomy Hx of tympanostomy tubes Family History Other Cancer Diabetes Gallbladder disease Heart disease Hypertension Lung disease Seizure Social History Smoking Status: Current every day smoker Tobacco Type: Cigarettes Cigarettes Per Day: 1/2-1 PPD; Second Hand Exposure: No; Do You Dip or Chew Tobacco: No; Hx Alcohol Use: No Hx Substance Use: No Preferred Language: Kazakh Communication Ability: Effective Athletics Director Required: No Beliefs That Will Affect Care: None marital status: Current Living Situation: Spouse current occupational status: employed Other Information That Helps Us Care for You: No Feels Safe at Home: Yes Safety Concerns: Feels Safe At This Time Assistive Devices: None Review of Systems Review of Systems: As per HPI, all other systems reviewed and negative Physical Exam Physical Exam: GENERAL: Comfortable, pleasant, morbidly obese, slightly anxious, no respiratory distress SKIN: Normal color, warm HEENT: Bespectacled, pink palpebral conjunctivae, no ptosis, dry buccal mucosa NECK : Supple, short neck, no tenderness CHEST : CTA, no tenderness HEART : Tachycardic, no obvious murmurs ABDOMEN: Some distention, nontender EXTREMITIES : Minimal LE swelling, no LE tenderness, no other conspicuous deformities noted NEUROLOGIC : Coherent, no facial asymmetry, no other gross focality Results & Data Results & Data Vital Signs (Past 12 Hours) Vital Signs Temp Pulse Resp BP Pulse Ox O2 Del Method 07/27/22 03:22 112 H 07/26/22 23:22 91 H 07/26/22 23:16 36.8 C 90 20 161/107 H 98 Room Air Laboratory Results Laboratory Results WBC 8.75 K/ul (4.8-10.8) 07/26/22 22:50 RBC 4.88 M/uL (4.20-5.40) 07/26/22 22:50 Hgb 14.5 g/dl (12.0-16.0) 07/26/22 22:50 Hct 42.1 % (37.0-47.0) 07/26/22 22:50 MCV 86.3 fL (80.0-100.0) 07/26/22 22:50 MCH 29.7 pg (25.0-34.0) 07/26/22 22:50 MCHC 34.4 g/dL (32.0-36.0) 07/26/22 22:50 RDW Std Deviation 51.1 fL (36.4-46.3) H 07/26/22 22:50 RDW Coeff of Jewell 16.2 % (11.5-14.5) H 07/26/22 22:50 Plt Count 267 K/uL (130-400) 07/26/22 22:50 MPV 9.7 fL (9.4-12.4) 07/26/22 22:50 Immature Gran % (Auto) 0.3 % 07/26/22 22:50 Neut % (Auto) 56.8 % 07/26/22 22:50 Lymph % (Auto) 32.5 % 07/26/22 22:50 [place] % (Auto) 6.9 % 07/26/22 22:50 Eos % (Auto) 2.9 % 07/26/22 22:50 Baso % (Auto) 0.6 % 07/26/22 22:50 Neut # (Auto) 4.98 K/uL (1.40-6.50) 07/26/22 22:50 Lymph # (Auto) 2.84 K/uL (1.2-3.4) 07/26/22 22:50 [place] # (Auto) 0.60 K/uL (0.11-0.59) H 07/26/22 22:50 Eos # (Auto) 0.25 K/uL (0-0.50) 07/26/22 22:50 Baso # (Auto) 0.05 K/uL (0-0.2) 07/26/22 22:50 Immature Gran # (Auto) 0.03 K/uL (0.01-0.20) 07/26/22 22:50 Sodium 136 mmol/L (136-145) 07/26/22 22:50 Potassium 3.5 mmol/L (3.5-5.1) 07/26/22 22:50 Chloride 100 mmol/L (98-107) 07/26/22 22:50 Carbon Dioxide 29 mmol/L (21-32) 07/26/22 22:50 Anion Gap 7 (3-11) 07/26/22 22:50 BUN 9 mg/dl (6-23) 07/26/22 22:50 Creatinine 0.80 mg/dl (0.6-1.2) 07/26/22 22:50 Est Cr Clr Drug Dosing 124.5 ml/min 07/26/22 22:50 Est GFR ( Amer) 113.9 ml/min 07/26/22 22:50 Est GFR (Non-Af Amer) 98.2 ml/min 07/26/22 22:50 BUN/Creatinine Ratio 11.3 (10-20) 07/26/22 22:50 Glucose 84 mg/dl (70-99(Fasting)) 07/26/22 22:50 Calcium 8.6 mg/dl (8.6-10.3) 07/26/22 22:50 Magnesium 1.9 mg/dl (1.7-2.4) 07/26/22 22:50 Total Bilirubin 0.3 mg/dl (0.2-1.0) 07/26/22 22:50 AST 28 U/L (13-39) 07/26/22 22:50 ALT 38 U/L (7-52) 07/26/22 22:50 Alkaline Phosphatase 94 U/L (34-104) 07/26/22 22:50 Total Protein 6.8 gm/dl (6.0-8.3) 07/26/22 22:50 Albumin 4.2 gm/dl (3.4-5.0) 07/26/22 22:50 Globulin 2.6 gm/dl (2.5-4.0) 07/26/22 22:50 Albumin/Globulin Ratio 1.6 (0.9-2) 07/26/22 22:50 SARS-CoV-2, RNA, NAAT NEGATIVE (NEGATIVE) 07/27/22 02:[address] 07/26/22 23:44 Exam(s): CT HEAD Without Contrast EXAM: CT Head Without Intravenous Contrast CLINICAL HISTORY: Seizure. TECHNIQUE: Axial computed tomography images of the head/brain without intravenous contrast. CTDI is 35.34 mGy and DLP is 537.48 mGy-cm. Automated exposure control was utilized for the study. A dose lowering technique was utilized adhering to the principles of ALARA. COMPARISON: CT head 12/04/2020 FINDINGS: Brain: Unremarkable. No significant white matter disease. No intracranial hemorrhage, mass-effect or midline shift. No abnormal extra axial fluid. No evidence of acute infarct. Ventricles: Unremarkable. No ventriculomegaly. Bones/joints: Unremarkable. No acute fracture. Soft tissues: Unremarkable. Sinuses: There is mild mucosal thickening of the paranasal sinuses. Mastoid air cells: Moderate right and large left mastoid effusion. IMPRESSION: 1. No acute intracranial finding. 2. Moderate right and large left mastoid effusion. Electronically signed by: Dagmar Hamilton MD 07/27/22 00:31 AM Diagnostic Findings Chest x-ray as per my interpretation atelectasis EKG as per my interpretation :Rate 90, NSR, normal axis, no ischemia
[2022-07-27] MEDS ORDERED: PROMETHAZINE HCL 12.5 MG in SODIUM CHLORIDE 0.9% 50 ML IV PRN (03:55)
[2022-07-27] MEDS ORDERED: oxyCODONE HCL IR 5 MG TAB (IMMEDIATE RELEASE) PO PRN (03:55)
[2022-07-27] MEDS ORDERED: LORazepam 0.5 MG TAB PO PRN (03:55)
[2022-07-27] MEDS ORDERED: cloNIDine HCL 0.1 MG TAB PO ONE (03:56)
[2022-07-27] MEDS ORDERED: LORazepam 2 MG/1 ML VIAL IV PRN (03:56)
[2022-07-27] MEDS ORDERED: GADOBUTROL 65ML VIAL IV ONE (05:08)
[2022-07-27] MEDS ORDERED: ACETAMINOPHEN 325 MG TAB PO PRN (05:45)
[2022-07-27 06:39] LABS: Appearance Urine Clear (Clear); Bilirubin Urine Negative (Negative); Blood Urine Negative (Negative); Color Urine Yellow; Glucose Urine UA Negative (Negative); Ketones Urine Negative (Negative); Leukocyte Esterase Urine Negative (Negative); Nitrite Urine Negative (Negative); Protein Urine Negative (Negative); Specific Gravity Urine 1.021 (1.000-1.030); Urobilinogen Urine Negative (Negative); pH Urine 6.5 (4.5-7.5)
[2022-07-27] MEDS ORDERED: COUGH DROP (SUGAR FREE) LOZ 24 LOZ/1 BOX BUCCAL STA (07:00)
[2022-07-27] MEDS ORDERED: COUGH DROP (SUGAR FREE) LOZ 24 LOZ/1 BOX BUCCAL ONE (07:03)
[2022-07-27 07:15] LABS: Amphetamines+Metham, Urine Neg (Neg); Barbiturates, Urine Neg (Neg); Benzodiazepine, Urine Neg (Neg); Cocaine, Urine Neg (Neg); MDMA (Ecstacy), Urine Neg (Neg); Methadone, Urine Neg (Neg); Opiate, Urine Neg (Neg); Phencyclidine, Urine Neg (Neg)
--- NOTE | 2022-07-27 07:19 | Magnetic Resonance Report ---
MR brain seizure wo/w con CLINICAL HISTORY: sz TECHNIQUE: Multiplanar and multisequence MR images of the brain were obtained prior to and following administration of gadolinium contrast. Comparison: Comparison is made to MRI brain 01/03/2010 FINDINGS: No abnormal restricted diffusion is identified. The white matter is unremarkable. The ventricular sys tem is normal in appearance.No mass or abnormal enhancement is seen. There is no mass effect or midli ne shift. There is no evidence of acute intraparenchymal hemorrhage. No extra axial fluid collections are seen. The corpus callosum, pituitary gland, and cerebellar tonsils appear grossly unremarkable. High-resolution images of the temporal lobes do not demonstrate any signal abnormality. Flow voids of the major intracranial arterial vessels are identified. Thickening of the paranasal sin us soft tissues noted bilaterally. IMPRESSION: No acute abnormality. In particular, no edema in the temporal lobes bilaterally in this postictal pat ient. ACT 112: Negative or not required by law. Electronically signed by: Sandro Delong M.D. 07/27/2022 7:17 AM
[2022-07-27 08:09] LABS: Thyroid Stimulating Hormone 12.373 uIu/ml (0.300-4.500)
[2022-07-27 08:44] LABS: T4 Free Thyroxine 0.93 ng/dl (0.61-1.60)
[2022-07-27] MEDS ORDERED: MONTELUKAST SODIUM 10 MG TABLET PO SCH (09:00)
--- NOTE | 2022-07-27 13:44 | Hospitalist Progress Note ---
Date of Service July 27, 2022 Assessment & Plan (1) Syncope: Plan: per admitting service notes with addendum: Unwitnessed syncopal event Possible new onset seizures given tongue biting episode family history of seizure disorder some association between atypical seizures and common variable immunodeficiency Rule out orthostasis, arrhythmia, obstructive cardiac pathology as other differentials 07/27 Brain MRI: Negative EEG: pending Telemetry: pending Echo: Grade 1 diastolic dysfunction noted on echo Neurologist consulted, awaiting recommendation Situational hypertension -- BP 134/85 Grade 1 diastolic dysfunction noted on echo -- close outpatient ff up anxiety/mood disorder, some stress with ongoing divorce proceedings hx celiac disease bronchial asthma, at baseline recurrent otitis media, no unusual symptoms as per patient despite mastoid effusions noted on CT imaging ongoing tobacco abuse DVT prophylaxis. SCDs Full code plan of care discussed with patient in detail and at length all questions answered she is understanding, agreeable, comfortable with the plan of care Admission and Anticipated Discharge Date Admission Date: July 27, 2022 Subjective Follow-up for syncopal episode, possible seizure episode, etc. Seen resting in bed, sitting up, not in distress, in good spirits, comfortable States she feels fine overall, just feels tired Denies headache, dizziness, chest pain, palpitations, dizziness No abdominal pain, nausea vomiting, fevers or chills No other new symptoms Review of Systems Review of Systems: all noted and negative except for above Physical Exam Physical Exam: General- oriented x 2, not in distress, speaks in sentences with no effort or accessory muscle use Eyes- anicteric Neck- no JVD Lungs- clear breath sounds bilaterally Heart- normal rate, regular rhythm; no murmurs Abdomen- normal bowel sounds, nondistended, soft, no tenderness Extremities- no pretibial edema, no calf tenderness Neuro- alert, oriented x 3; no gross focal neurologic deficits Skin- warm & dry Results & Data Results & Data Vital Signs (Past 12 Hours) Vital Signs Temp Pulse Pulse Resp BP BP Pulse Ox 07/27/22 11:23 36.7 C 80 20 134/85 97 07/27/22 11:02 82 07/27/22 07:32 36.7 C 87 18 120/80 96 07/27/22 05:52 36.6 C 16 155/99 H 96 07/27/22 05:33 07/27/22 02:00 88 21 96 05/08/23 02:00 165/128 H 07/27/22 03:22 112 H O2 Del Method 07/27/22 11:23 Room Air 07/27/22 11:02 07/27/22 07:32 Room Air 07/27/22 05:52 Room Air 07/27/22 05:33 Room Air 07/27/22 02:00 Room Air 07/27/22 02:00 07/27/22 03:22 all noted and reviewed including below
--- NOTE | 2022-07-27 13:51 | Electroencephalogram ---
EEG Procedure Note Date of Service July 27, 2022 Start / End Times Start Time: 11:50 End Time: 12:10 Referring Physician Glen Bustos MD History Syncope Home Medication List Medication Instructions Recorded Confirmed Type albuterol sulfate 90 mcg/actuation 2 puff inhalation Q4H PRN 10/15/20 07/27/22 History aerosol inhaler (ProAir HFA) Shortness Of Breath Or Wheezing immun glob G 10 gram/50 mL(20 0 ml subcut WK 05/30/21 07/27/22 History %)-pro-IgA 0-50 mcg/mL subcutaneous soln (Hizentra) Iron Infusion 1 dose IV DIRECTED 06/10/22 07/27/22 History ibuprofen 600 mg tablet 600 mg PO DIRECTED PRN Pain 06/10/22 07/27/22 History lidocaine-prilocaine 2.5 %-2.5 % 1 applic topical DIRECTED PRN 06/10/22 07/27/22 History topical cream PRIOR TO INFUSIONS montelukast 10 mg tablet 10 mg PO DAILY 07/27/22 07/27/22 History Inpatient Medication List Lactated Ringer's (Lr) 1,000 mls @ 50 mls/hr IV .Q20H ONE Stop: 07/27/22 23:04 Last Infusion: 07/27/22 05:45 Dose: 50 mls/hr Documented By: Infusion: 07/27/22 04:25 Dose: 0 mls/hr Documented By: Admin: 07/27/22 03:49 Dose: 50 mls/hr Documented By: Montelukast Sodium (Montelukast Sodium 10 Mg Tablet) 10 mg PO DAILY ANGELICA Stop: 08/26/22 08:59 Last Admin: 07/27/22 08:56 Dose: 10 mg Documented By: LIONEL Discontinued Medications Clonidine HCl (Clonidine Hcl 0.1 Mg Tab) 0.1 mg PO NOW ONE Stop: 07/27/22 03:57 Last Admin: 07/27/22 06:38 Dose: 0.1 mg Documented By: NGOC Gadobutrol (Gadobutrol 65ml Vial) 10.4 ml IV ONCE ONE Stop: 07/27/22 05:09 Last Admin: 07/27/22 05:08 Dose: 10.4 ml Documented By: EBONI Ketorolac Tromethamine (Ketorolac 30 Mg/Ml Vial) 30 mg IV NOW ONE Stop: 07/27/22 02:02 Last Admin: 07/27/22 02:15 Dose: 30 mg Documented By: SHIELA Menthol (Cough Drop (Sugar Free) Loyda 24 Loyda/1 Box) 1 loyda BUCCAL NOW STA Stop: 07/27/22 07:01 Last Admin: 07/27/22 07:04 Dose: 1 loyda Documented By: NGOC Menthol (Cough Drop (Sugar Free) Loyda 24 Loyda/1 Box) Confirm Administered Dose 24 loyda BUCCAL .STK-MED ONE Stop: 07/27/22 07:04 Last Admin: 07/27/22 07:05 Dose: Not Given Documented By: NGOC Description This is a 21 electrode EEG with a single channel dedicated to limited EKG. The electrodes were placed in accordance with the International 10-20 system. Interpretation During restful wakefulness, there is a well-formed, 40 to 50 V, 10 Hz posterior activity, which attenuates with eye opening bilaterally. Background activity shows good organization without focal slowing. Photic stimulations induce posterior driving responses bilaterally. Hyperventilation does not induce buildup slowing responses or abnormal discharg es. With drowsiness, posterior activity attenuates and horizontal eye movements appear. During sleep, vertex sharp waves, sleep spindles and occasional K complexes are recorded bilaterally and symmetrically. There are no electrographic seizures, epileptogenic discharges or asymmetries. Impression: This EEG, recorded in wakefulness, drowsiness and sleep, is normal. There is no electrographic seizure or epileptogenic discharge. Clinical Correlation Normal routine EEG cannot rule out seizure disorder definitively. If clinically indicated, have prolonged EEG might offer further information.
--- NOTE | 2022-07-27 14:53 | Neurology Consultation ---
Date of Consultation July 27, 2022 Assessment & Plan (1) Convulsive syncope: Impression: The patient had an episode of loss of consciousness, which was likely secondary to excessive coughing induced vasovagal hyperactivity. However, she does not remember feeling dizzy, lightheaded, or having coughing or going to the bathroom prior to loss of consciousness. She has family history of seizure disorder. New onset seizure is in differential but less likely. Recommendations: There is no indication for antiepileptic treatment at this time. Seizure precautions are fully explained to patient. The patient understood the requirement of no driving for 6 months. Follow-up at neurology clinic in a month. I will contact with [facility] neurology to set up an appointment. The patient is neurologically stable and can be discharged home. (2) Excessive daytime sleepiness: Impression: The patient is overweight, and has been suffering from excessive daytime sleepiness, snoring and choking in sleep which was witnessed by other family members. She might have obstructive sleep apnea. Recommendations: Follow-up with primary care physician or neurologist, for further evaluation. (3) Asthma: Impression: The patient has history of bronchial asthma. Recently, she has been having some allergic reactions. She has history of excessive coughing spells and respiratory distress. Recommendations: Follow-up with her primary care physician regarding asthma management. Plan As seen above. Thank you for the consultation. History of Present Illness Reason for Consultation: Syncope, convulsion Requesting Physician: Glen Bustos MD Attending Physician: Issa Bello MD History of Present Illness The patient is a 31-year-old female, with history of bronchial asthma, anxiety/mood disorder, common variable immune deficiency, who had an episode of loss of consciousness yesterday evening, and was brought to emergency department. The patient remembers resting with her children in her house, then next thing she remembers waking up on the floor of the bathroom. According to her daughter, the patient started coughing excessively, and then stood up and went to the bathroom and she heard a noise in the bathroom but she did not check her mother. The patient has no recollection of coughing or going to the bathroom. When she woke up on the floor of her bathroom, she noticed some shaking activity as well as she thought she was biting her tongue. However, there was no tongue or oral laceration. She was able to call her mother on the phone. There was no urinary/ bowel incontinence or scalp injury. The patient does not know how long she was unconscious. She denies any similar events in the past however, she gets excessive coughing spells at times. In emergency department, the patient's mental status was back to her baseline. Laboratory work-up and telemetry monitoring has been stable and unremarkable. Head CT was negative for acute intracranial pathology. The patient denies having episodes of loss of consciousness or seizures in the past. Her father has seizure disorder. Since admission, the patient has been symptom-free. The patient does not remember having prior episodes of palpitations, chest pain, or dizzy spells. Since admission, the patient has had EEG, which did not show epileptogenic activity or other abnormality. 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 She understood requirement of no driving for 6 months. I have reviewed the patient's chart including imaging studies and EEG report. I have visualized imaging studies personally. Allergies Allergy/AdvReac Type Severity Reaction Status Date / Time prednisone AdvReac Intermediate CONFUSED,CO Verified 06/10/22 18:40 MBATIVE Home Medications Medication Instructions Recorded Confirmed Type albuterol sulfate 90 mcg/actuation 2 puff inhalation Q4H PRN 10/15/20 07/27/22 History aerosol inhaler (ProAir HFA) Shortness Of Breath Or Wheezing immun glob G 10 gram/50 mL(20 0 ml subcut WK 05/30/21 07/27/22 History %)-pro-IgA 0-50 mcg/mL subcutaneous soln (Hizentra) Iron Infusion 1 dose IV DIRECTED 06/10/22 07/27/22 History ibuprofen 600 mg tablet 600 mg PO DIRECTED PRN Pain 06/10/22 07/27/22 History lidocaine-prilocaine 2.5 %-2.5 % 1 applic topical DIRECTED PRN 06/10/22 07/27/22 History topical cream PRIOR TO INFUSIONS montelukast 10 mg tablet 10 mg PO DAILY 07/27/22 07/27/22 History Patient History Medical History Abnormal urinalysis Anemia Asthma Celiac disease DVT prophylaxis MATT (iron deficiency anemia) IgA deficiency Pneumonia Severe sepsis Tobacco use Surgical History H/O hernia repair History of cholecystectomy Hx of appendectomy Hx of tympanostomy tubes Family History Other Cancer Diabetes Gallbladder disease Heart disease Hypertension Lung disease Seizure Social History Smoking Status: Current every day smoker Tobacco Type: Cigarettes Cigarettes Per Day: 1/2-1 PPD; Second Hand Exposure: No; Do You Dip or Chew Tobacco: No; Hx Alcohol Use: No Hx Substance Use: No Preferred Language: Telugu Communication Ability: Effective Media Relations Manager Required: No Beliefs That Will Affect Care: None marital status: Current Living Situation: Spouse current occupational status: employed Other Information That Helps Us Care for You: No Feels Safe at Home: Yes Safety Concerns: Feels Safe At This Time Assistive Devices: None Review of Systems Review of Systems: All systems reviewed & are unremarkable except as noted in HPI & below Physical Exam Physical Exam: General Examination: Constitutional: Well developed overweight person in no acute distress. HENT: Normal exam with inspection. No tongue or oral laceration, no trauma signs of head. CV: Hearth rhythm is regular. Neck: Supple, no carotid bruits. Lungs: Non-labored and comfortable breathing. Abdomen: Soft, non-tender, non-distended. Skin: No rash or ecchymosis. Extremities: No edema or cyanosis NEUROLOGICAL EXAMINATION: Mental Status: Alert and oriented to place, person and time. Cranial Nerves: II-XII are intact. No nystagmus. Funduscopy: Normal looking optic discs. Motor: 5/5 in all extremities without asymmetry. Tone: Normal without spasticity or rigidity. Sensory: Intact to all sensory modalities. Coordination: No dysmetria with FTN testing. Speech: Fluent. Comprehension is intact. Gait: Normal. No ataxia or abnormal walking pattern. Musculoskeletal: Normal muscle bulk, no atrophy. Results & Data Vital Signs (Past 12 Hours) Vital Signs Temp Pulse Pulse Resp BP Pulse Ox O2 Del Method 07/27/22 11:23 36.7 C 80 20 134/85 97 Room Air 07/27/22 11:02 82 07/27/22 07:32 36.7 C 87 18 120/80 96 Room Air 07/27/22 05:52 36.6 C 16 155/99 H 96 Room Air 07/27/22 05:33 Room Air 07/27/22 03:22 112 H Laboratory Results Laboratory Results - last 24 hr 07/26/22 07/26/22 07/26/22 22:50 22:50 22:50 WBC 8.75 RBC 4.88 Hgb 14.5 Hct 42.1 MCV 86.3 MCH 29.7 MCHC 34.4 RDW Std Deviation 51.1 H RDW Coeff of Jewell 16.2 H Plt Count 267 MPV 9.7 Immature Gran % (Auto) 0.3 Neut % (Auto) 56.8 Lymph % (Auto) 32.5 [place] % (Auto) 6.9 Eos % (Auto) 2.9 Baso % (Auto) 0.6 Neut # (Auto) 4.98 Lymph # (Auto) 2.84 [place] # (Auto) 0.60 H Eos # (Auto) 0.25 Baso # (Auto) 0.05 Immature Gran # (Auto) 0.03 Sodium 136 Potassium 3.5 Chloride 100 Carbon Dioxide 29 Anion Gap 7 BUN 9 Creatinine 0.80 Est Cr Clr Drug Dosing 124.5 Est GFR ( Amer) 113.9 Est GFR (Non-Af Amer) 98.2 BUN/Creatinine Ratio 11.3 Glucose 84 Calcium 8.6 Magnesium 1.9 Total Bilirubin 0.3 AST 28 ALT 38 Alkaline Phosphatase 94 Total Protein 6.8 Albumin 4.2 Globulin 2.6 Albumin/Globulin Ratio 1.6 TSH 12.373 H Free T4 0.93 Urine Color Urine Appearance Urine pH Ur Specific [place] Urine Protein Urine Glucose (UA) Urine Ketones Urine Blood Urine Nitrite Urine Bilirubin Urine Urobilinogen Ur Leukocyte Esterase Urine Opiates Screen Ur Methadone, Qual Urine Barbiturates Ur Phencyclidine (PCP) U Amphetamin/Meth Scrn MDMA (Ecstasy) Screen U Benzodiazepines Scrn Ur Cocaine Metabolite U Marijuana (THC) Screen SARS-CoV-2, RNA, NAAT 07/27/22 07/27/22 07/27/22 02:57 06:20 Unknown WBC RBC Hgb Hct MCV MCH MCHC RDW Std Deviation RDW Coeff of [place] Plt Count MPV Immature Gran % (Auto) Neut % (Auto) Lymph % (Auto) [place] % (Auto) Eos % (Auto) Baso % (Auto) Neut # (Auto) Lymph # (Auto) [place] # (Auto) Eos # (Auto) Baso # (Auto) Immature Gran # (Auto) Sodium Potassium Chloride Carbon Dioxide Anion Gap BUN Creatinine Est Cr Clr Drug Dosing Est GFR ( Amer) Est GFR (Non-Af Amer) BUN/Creatinine Ratio Glucose Calcium Magnesium Total Bilirubin AST ALT Alkaline Phosphatase Total Protein Albumin Globulin Albumin/Globulin Ratio TSH Free T4 Urine Color Yellow Urine Appearance Clear Urine pH 6.5 Ur Specific [place] 1.021 Urine Protein Negative Urine Glucose (UA) Negative Urine Ketones Negative Urine Blood Negative Urine Nitrite Negative Urine Bilirubin Negative Urine Urobilinogen Negative Ur Leukocyte Esterase Negative Urine Opiates Screen Neg Ur Methadone, Qual Neg Urine Barbiturates Neg Ur Phencyclidine (PCP) Neg U Amphetamin/Meth Scrn Neg MDMA (Ecstasy) Screen Neg U Benzodiazepines Scrn Neg Ur Cocaine Metabolite Neg U Marijuana (THC) Screen Neg SARS-CoV-2, RNA, NAAT NEGATIVE Diagnostic Findings Head CT 07/26/22 23:44 Exam(s): CT HEAD Without Contrast EXAM: CT Head Without Intravenous Contrast CLINICAL HISTORY: Seizure. TECHNIQUE: Axial computed tomography images of the head/brain without intravenous contrast. CTDI is 35.34 mGy and DLP is 537.48 mGy-cm. Automated exposure control was utilized for the study. A dose lowering technique was utilized adhering to the principles of ALARA. COMPARISON: CT head 12/04/2020 FINDINGS: Brain: Unremarkable. No significant white matter disease. No intracranial hemorrhage, mass-effect or midline shift. No abnormal extra axial fluid. No evidence of acute infarct. Ventricles: Unremarkable. No ventriculomegaly. Bones/joints: Unremarkable. No acute fracture. Soft tissues: Unremarkable. Sinuses: There is mild mucosal thickening of the paranasal sinuses. Mastoid air cells: Moderate right and large left mastoid effusion. IMPRESSION: 1. No acute intracranial finding. 2. Moderate right and large left mastoid effusion. Electronically signed by: Dagmar Hamilton MD 07/27/22 00:31 AM Brain MRI 07/27/22 03:55 MR brain seizure wo/w con CLINICAL HISTORY: sz TECHNIQUE: Multiplanar and multisequence MR images of the brain were obtained prior to and following administration of gadolinium contrast. Comparison: Comparison is made to MRI brain 01/03/2010 FINDINGS: No abnormal restricted diffusion is identified. The white matter is unremarkable. The ventricular system is normal in appearance.No mass or abnormal enhancement is seen. There is no mass effect or midline shift. There is no evidence of acute intraparenchymal hemorrhage. No extra axial fluid collections are seen. The corpus callosum, pituitary gland, and cerebellar tonsils appear grossly unremarkable. High-resolution images of the temporal lobes do not demonstrate any signal abnormality. Flow voids of the major intracranial arterial vessels are identified. Thickening of the paranasal sinus soft tissues noted bilaterally. IMPRESSION: No acute abnormality. In particular, no edema in the temporal lobes bilaterally in this postictal patient. ACT 112: Negative or not required by law. Electronically signed by: Sandro Delong M.D. 07/27/2022 7:17 AM EEG-- normal Medications Administered Reviewed
--- NOTE | 2022-07-27 15:28 | Discharge Summary ---
Discharge Summary Date of Service July 27, 2022 Notes For Next Care Provider Please refer to a sleep study. Follow-up grade 1 diastolic dysfunction. Medication Changes From Visit None Admission HPI Per Admitting Provider History obtained from patient and records. Medical history significant for anxiety/mood disorder, celiac disease, common variable immunodeficiency, bronchial asthma, recurrent otitis media, ongoing tobacco abuse. Patient was talking to her twin daughters last night when one of her daughters noted that she looks scared. Patient woke up on the floor of the bathroom. Not sure how she got there. Patient thinks she bit her tongue. No incontinence. Chronic headache symptoms which she attributes to common variable immunodeficiency. Some stress with ongoing divorce proceedings. Some disruption of usual sleep schedule the last week. Patient denies chest pain, SOB, abdominal pain. No unusual ear drainage. No prior history of seizures. No history of alcohol abuse. Patient brought to the ER for evaluation after EMS alerted by patient's family. 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 Admission Exam Per Admitting Provider GENERAL: Comfortable, pleasant, morbidly obese, slightly anxious, no respiratory distress SKIN: Normal color, warm HEENT: Bespectacled, pink palpebral conjunctivae, no ptosis, dry buccal mucosa NECK : Supple, short neck, no tenderness CHEST : CTA, no tenderness HEART : Tachycardic, no obvious murmurs ABDOMEN: Some distention, nontender EXTREMITIES : Minimal LE swelling, no LE tenderness, no other conspicuous deformities noted NEUROLOGIC : Coherent, no facial asymmetry, no other gross focality Principal Dx & Hospital Course #1 = Principal Diagnosis (1) Syncope: per admitting service notes with addendum: Unwitnessed syncopal event Possible new onset seizures given tongue biting episode family history of seizure disorder some association between atypical seizures and common variable immunodeficiency 07/27 Brain MRI: Negative EEG: Normal Telemetry: No arrhythmia Echo: Grade 1 diastolic dysfunction, ejection fraction 65 to 70%, left ventricular systolic function is normal, no significant valvular pathology Evaluated by Dr. Rangel from neurology service No indication for antiepileptic treatment at this time No driving for 6 months Situational hypertension -- BP 134/85 Grade 1 diastolic dysfunction noted on echo -- close outpatient ff up Excessive daytime sleepiness -- Please refer to sleep study anxiety/mood disorder, some stress with ongoing divorce proceedings hx celiac disease bronchial asthma, at baseline recurrent otitis media, no unusual symptoms as per patient despite mastoid effusions noted on CT imaging ongoing tobacco abuse DVT prophylaxis. SCDs Full code Disposition Discharge to home Follow-up with PCP in 1 week Follow-up in neurology clinic plan of care discussed with patient in detail and at length all questions answered she is understanding, agreeable, comfortable with the plan of care Discharge Exam General- oriented x 2, not in distress, speaks in sentences with no effort or accessory muscle use Eyes- anicteric Neck- no JVD Lungs- clear breath sounds bilaterally Heart- normal rate, regular rhythm; no murmurs Abdomen- normal bowel sounds, nondistended, soft, no tenderness Extremities- no pretibial edema, no calf tenderness Neuro- alert, oriented x 3; no gross focal neurologic deficits Skin- warm & dry Updated Medication List Medication Instructions Recorded Confirmed Type albuterol sulfate 90 mcg/actuation 2 puff inhalation Q4H PRN 10/15/20 07/27/22 History aerosol inhaler (ProAir HFA) Shortness Of Breath Or Wheezing immun glob G 10 gram/50 mL(20 0 ml subcut WK 05/30/21 07/27/22 History %)-pro-IgA 0-50 mcg/mL subcutaneous soln (Hizentra) Iron Infusion 1 dose IV DIRECTED 06/10/22 07/27/22 History ibuprofen 600 mg tablet 600 mg PO DIRECTED PRN Pain 06/10/22 07/27/22 History lidocaine-prilocaine 2.5 %-2.5 % 1 applic topical DIRECTED PRN 06/10/22 07/27/22 History topical cream PRIOR TO INFUSIONS montelukast 10 mg tablet 10 mg PO DAILY 07/27/22 07/27/22 History Hospital Stay Data Consultations 07/27/22 02:49 ED Decision to Admit Stat 07/27/22 05:45 Consult Neurology Routine Diagnostic Imagining Performed 07/26/22 23:44 CT head/brain wo con Stat 07/27/22 03:55 MRI Brain [MR brain seizure wo/w con] Stat Pending Results Patient Have Any Pending Studies at Discharge: No Discharge Instructions Given to Patient (Per Discharging Provider) Please resume your usual medication regimen. Please drink plenty of fluids. No bathing in tub, swimming, using machineries. PLEASE CALL YOUR PRIMARY CARE PHYSICIAN OR RETURN TO THE ER IF WITH WORSENING OF SYMPTOMS, INCLUDING Confusion, loss of consciousness, seizure, etc. FOLLOW UP WITH PRIMARY CARE PHYSICIAN AND NEUROLOGY CLINIC OUTLINED ABOVE. Total Time Total Time Spent Total Time Spent (In Minutes): >30 minutes
--- NOTE | 2022-07-28 07:49 | XRay Report ---
XR chest 2V PA/lateral HISTORY: 31 years-old Female cough acute cough with dizziness COMPARISON: Chest radiograph 06/10/2022 TECHNIQUE: PA and lateral views of the chest FINDINGS: Cardiac mediastinal and hilar silhouettes are within normal limits. No pneumothorax, pleural effusion , airspace consolidation or pulmonary edema. Cholecystectomy. Bones appear grossly intact. IMPRESSION: No acute process. ACT 112: Negative or not required by law. The above report was generated using voice recognition software. It may contain grammatical, syntax o r spelling errors. Electronically signed by: Cade Hay M.D. 07/28/2022 7:48 AM
--- NOTE | 2022-07-28 22:36 | Electrocardiogram Report ---
Test Reason : Blood Pressure : / mmHG Vent. Rate : 091 BPM Atrial Rate : 091 BPM P-R Int : 142 ms QRS Dur : 096 ms QT Int : 362 ms P-R-T Axes : 051 040 037 degrees QTc Int : 445 ms Normal sinus rhythm Normal ECG When compared with ECG of 10-JUN-2022 18:19, No significant change was found Confirmed by Tim Howard ([id number]) on 07/28/2022 10:36:43 PM Referred By: REFERRED SELF Confirmed By:Tim Howard
== END 2022-07-27 16:00 | disposition home or self-care (01) ==
LOC: ED 23:11 → 2W 23:11 → SUATTDRO 07-27 03:53 → 2W 07-27 05:33